=== PATIENT | female | born 1945 | race Caucasian/White ===

== ENCOUNTER 2017-03-11 17:04 | Emergency (ER) | payer MEDICARE, OTHER ==
[~2017-03-11] VITALS: Ht 160 cm; Wt 61.2 kg
[~2017-03-11 17:04] MED LIST: ALBU8.5H2 INH; CALC-20 PO; ESCI20TA PO; METO-295 PO; NAPR220C15 PO; NIAC500T8 PO; PRAV10TA40 PO; TIOT18CA3 INH; UBID100C13 PO
[2017-03-11 17:49] LABS: BASOPHILS # (AUTO) 0.1 /CMM (0.0-0.2); BASOPHILS % (AUTO) 0.8 % (0.0-2.0); EOSINOPHILS # (AUTO) 0.1 /CMM (0.0-0.7); EOSINOPHILS % (AUTO) 0.8 % (0.0-6.0); HEMATOCRIT 45 % (33-45); HEMOGLOBIN 14.6 g/dL (11.5-14.8); LYMPHOCYTES # (AUTO) 1.7 /CMM (0.8-4.8); LYMPHOCYTES % (AUTO) 20.4 % (20.0-44.0); MEAN CORPUSCULAR HEMOGLOBIN 30 PG (26.0-33.0); MEAN CORPUSCULAR HGB CONC 32 g/dl (31.0-36.0); MEAN CORPUSCULAR VOLUME 93 fL (82-100); MONOCYTES # (AUTO) 0.5 /CMM (0.1-1.30); MONOCYTES % (AUTO) 5.9 % (2.0-12.0); NEUTROPHILS % (AUTO) 72.1 % (43.0-81.0); PLATELET COUNT (AUTO) 232 /CMM (150-450); RDW COEFFICIENT OF VARIATION 13.1 (11.5-15.0); RED BLOOD CELL COUNT(AUTO) 4.87 MIL/uL (4.0-5.2); WHITE BLOOD COUNT (AUTO) 8.4 K/uL (4.3-11.0)
[2017-03-11 18:06] LABS: INR 0.97 (0.87-1.13); PROTHROMBIN TIME 10.1 SECS (9.5-12.7)
[2017-03-11 18:37] VITALS: BP 135/85
== END 2017-03-11 18:38 | disposition home or self-care (01) ==
LOC: ER 17:08
DX: S40.021A Contusion of right upper arm, initial encounter (principal); S50.11XA Contusion of right forearm, initial encounter; S60.221A Contusion of right hand, initial encounter; G35 Multiple sclerosis; J44.9 Chronic obstructive pulmonary disease, unspecified; Z90.710 Acquired absence of both cervix and uterus; Z88.5 Allergy status to narcotic agent; Z88.6 Allergy status to analgesic agent; Z88.8 Allergy status to other drugs, medicaments and biological substances; X58.XXXA Exposure to other specified factors, initial encounter; Y93.89 Activity, other specified; Y92.89 Other specified places as the place of occurrence of the external cause; Y99.9 Unspecified external cause status
CPT/HCPCS: 36415; 85025; 85730; 99284; A4606; Z7610

== ENCOUNTER 2017-05-24 08:58 | Inpatient (IN) | payer MEDICARE, OTHER ==
[~2017-05-24] VITALS: Ht 162.6 cm; Wt 69.4 kg
--- NOTE | 2017-05-24 09:05 | NUR ---
Chantal from home: nausea, vomiting since early am. Unable to recall how many times she vomitted within the day. Pt in no apparent distress. Respiration even and unlabored. vss. afebrile
[2017-05-24] MEDS ORDERED: ONDANSETRON HCL/PF 4 MG/2 ML VIAL ONE (09:19)
[2017-05-24 09:27] LABS: BASOPHILS % (AUTO) 0.2 % (0.0-2.0); EOSINOPHILS # (AUTO) 0.1 /CMM (0.0-0.7); EOSINOPHILS % (AUTO) 0.5 % (0.0-6.0); HEMATOCRIT 42 % (33-45); HEMOGLOBIN 14.1 g/dL (11.5-14.8); LYMPHOCYTES # (AUTO) 0.6 /CMM (0.8-4.8); LYMPHOCYTES % (AUTO) 2.8 % (20.0-44.0); MEAN CORPUSCULAR HEMOGLOBIN 31 PG (26.0-33.0); MEAN CORPUSCULAR HGB CONC 34 g/dl (31.0-36.0); MEAN CORPUSCULAR VOLUME 90 fL (82-100); MONOCYTES # (AUTO) 0.5 /CMM (0.1-1.30); MONOCYTES % (AUTO) 2.1 % (2.0-12.0); NEUTROPHILS % (AUTO) 94.4 % (43.0-81.0); PLATELET COUNT (AUTO) 245 /CMM (150-450); RDW COEFFICIENT OF VARIATION 13.7 (11.5-15.0); RED BLOOD CELL COUNT(AUTO) 4.63 MIL/uL (4.0-5.2); WHITE BLOOD COUNT (AUTO) 22.2 K/uL (4.3-11.0)
[2017-05-24] MEDS ORDERED: ONDANSETRON HCL/PF 4 MG/2 ML VIAL IVP ONE (09:30)
[2017-05-24] MEDS ORDERED: IV NS 0.9% 1,000 ML BAG IV ONE (09:30)
--- NOTE | 2017-05-24 09:31 | NUR ---
EKG IN PROGRESS
[2017-05-24 09:37] LABS: CALCIUM, SERUM 9.3 mg/dL (8.5-10.1); CARBON DIOXIDE 29 mmol/L (21-32); CHLORIDE 105 mmol/L (98-107); CREATININE 1.2 mg/dL (0.6-1.3); GLUCOSE 127 mg/dL (74-106); POTASSIUM 4.2 mmol/L (3.5-5.1); SODIUM SERUM 141 mmol/L (136-145); UREA NITROGEN, BLOOD 20 mg/dL (7-18)
[2017-05-24 09:42] LABS: ALANINE AMINOTRANSFERASE 21 U/L (12-78); ALBUMIN 3.6 g/dL (3.4-5.0); ALKALINE PHOSPHATASE 67 U/L (46-116); ASPARTATE AMINOTRANSFERASE 22 U/L (15-37); BILIRUBIN,DIRECT 0.1 mg/dL (0.0-0.2); BILIRUBIN,TOTAL 0.4 mg/dL (0.2-1.0); LIPASE 118 U/L (73-393); TOTAL PROTEIN, SERUM 6.9 g/dL (6.4-8.2)
[2017-05-24 09:48] LABS: TROPONIN I < 0.017 ng/mL (0.00-0.056)
[2017-05-24 10:16] LABS: BILIRUBIN,URINE Negative (NEGATIVE); BLOOD, URINE Large Ery/uL (NEGATIVE); COLOR,URINE Yellow (YELLOW); KETONES,URINE Negative (NEGATIVE); LEUKOCYTE ESTERASE ,URINE Large (NEGATIVE); NITRITE, URINE Positive (NEGATIVE); PROTEIN,URINE 30 mg/dl (NEGATIVE); UGLUCOSE Negative (NEGATIVE); UROBILINOGEN,URINE 0.2 EU/dL (0.2)
[2017-05-24 10:18] LABS: APPEARANCE,URINE CLOUDY (CLEAR)
[2017-05-24 10:19] LABS: BACTERIA,URINE 2+ /HPF (None Seen); RBC,URINE 21-50 /HPF (0-2); SQUAMOUS EPITHELIAL CELL,UR Moderate /HPF (None Seen); WBC,URINE 21-50 /HPF (0-3)
[2017-05-24 10:20] LABS: URINE AMORPHOUS PHOSPHATES Few /HPF (None Seen)
[2017-05-24] MEDS ORDERED: VENL37.591 PO (10:50)
[2017-05-24] MEDS ORDERED: DIME1CAP PO (10:50)
[2017-05-24] MEDS ORDERED: METO5TAB2 PO (10:50)
[2017-05-24] MEDS ORDERED: CEFTRIAXONE 1GM BAG (ER ONLY) 1 GM/50 ML PIGGYBACK IV ONE (11:00)
[2017-05-24] MEDS ORDERED: CEFTRIAXONE 1GM BAG (ER ONLY) 50 ML IV ONE (11:07)
[2017-05-24 11:34] LABS: BAND % (MANUAL) 4 % (0.0-5.0); EOSINOPHILS % (MANUAL) 1 % (0-4); LYMPHOCYTES % (MANUAL) 5 % (16-48); MONOCYTES % (MANUAL) 1 % (0-11.0); NEUTROPHILS % (MANUAL) 89 (42-76)
--- NOTE | 2017-05-24 11:35 | NUR ---
COREY PAGED, DR.SAM Martinez COMPUTATOR
--- NOTE | 2017-05-24 12:05 | NUR ---
REPORT GIVEN TO LEONELA CLANCY FOR CONTINUITY OF CARE
--- NOTE | 2017-05-24 12:13 | NUR ---
PATIENT TRANSPORTED TO [facility]. S
[2017-05-24 12:25] VITALS: BP 159/90
--- NOTE | 2017-05-24 12:30 | NUR ---
PULP BEATERPATIENT CARE NOTE PATIENT IS ALERT AND ORIENTED x3. NO PAIN AT THIS TIME. NO SOB OR DISTRESS NOTED. CALL LIGHT WITHIN REACH. SAFETY MEASURES IMPLEMENTED. ABLE TO COMMUNICATE NEEDS. PRESENTED TO THE ER FOR NAUSEAS AND VOMITING, MEDICATION GIVEN IN ER. PATIENT STATES NO NAUSEA AT THIS TIME. INCONTINENT. DIAGNOSIS FOR UTI. CARDIAC DIET, STRICT INTAKE AND OUTPUT. RIGHT AC INTACT AND PATENT. NO SKIN ISSUES NOTED AT THIS TIME. PENDING BLOOD AND URINE CULTURES. ROOM AIR O2 SATURATION AT 98%, TOLERATING WELL. LIVES AT HOME WITH CAREGIVER. HISTORY OF MS, COPD, HYSTERECTOMY, GALLBLADDER REMOVAL, BREAST BIOPSY, LEFT AND RIGHT ARM FRACTURE, STRABISMUS, GERD, UTI HISTORY, DEPRESSION AND ANXIETY. ALLERGIES TO ACETAMINOPHEN, IBUPROFEN AND CODEINE. FULL CODE NO ISOLATION. MED RECONCILIATION TO BE DONE, MD AWARE. AWAITING FOR ORDERS. WILL CONTINUE TO MONITOR
--- NOTE | 2017-05-24 13:00 | NUR ---
RN NOTE PATIENT IS NOW MEDSURG NOT TELE
[2017-05-24] MEDS ORDERED: HYDROCODONE/APAP 5/325MG 1 EACH TABLET PO PRN ×2 (14:30)
[2017-05-24] MEDS ORDERED: IPRATROPIUM NEB FS 0.5 MG/2.5 ML AMPUL.NEB NEB SCH (14:30)
[2017-05-24] MEDS ORDERED: MAGNESIUM HYDROXIDE 30 ML UDC PO PRN (14:30)
[2017-05-24] MEDS ORDERED: MAG HYDROX/AL HYDROX/SIMETH 30 ML UDC PO PRN (14:30)
[2017-05-24] MEDS ORDERED: ACETAMINOPHEN 325 MG TABLET PO PRN (14:30)
[2017-05-24] MEDS ORDERED: ZOLPIDEM TARTRATE 5 MG TABLET PO PRN (14:30)
[2017-05-24] MEDS ORDERED: ONDANSETRON HCL/PF 4 MG/2 ML VIAL IVP PRN (14:30)
[2017-05-24] MEDS ORDERED: Z GUARD REMEDY 2 OZ OINT TP PRN (14:30)
[2017-05-24] MEDS: ENOXAPARIN SODIUM 40 MG/0.4 ML DISP.SYRIN SQ SCH (15:28)
[2017-05-24] MEDS: IV NS 0.9% 1,000 ML IV PRN (15:59)
[2017-05-24 16:00] VITALS: BP 137/75
--- NOTE | 2017-05-24 18:46 | NUR ---
MS RN CLOSING NOTE PATIENT IS ALERT AND ORIENTED X3. NO PAIN AT THIS TIME. NO SOB OR DISTRESS NOTED. CALL LIGHT WITHIN REACH AT ALL TIMES. SAFETY MEASURES IMPLEMENTED. ABLE TO COMMUNICATE NEEDS. BEDREST. IV ON LEFT AC INTACT AND PATENT, IV FLUIDS RUNNING AT THIS TIME AND TOLERATING WELL. ALL DUE MEDICATIONS GIVEN ORDERED. ALL NURSING CARE NEEDS ATTENDED TO. BLOOD AND URINE CULTURES PENDING. CARDIAC DIET. WILL ENDORSE TO FORENSIC BALLISTICS EXPERT NURSE FOR IZABELA
[2017-05-24] MEDS ORDERED: ALBUTEROL FS 2.5 MG/3 ML VIAL.NEB NEB PRN (19:30)
--- NOTE | 2017-05-24 19:45 | NUR ---
MS RN OPENING NOTES RECEIVED PATIENT RESTING IN BED, IN SEMI BELL POSITION. A & O X 3, NO C/O PAIN, NO SOB, NO ACUTE DISTRESS NOTED AT THIS TIME. NO N/V NOTED. COMFORTABLE. INCONTINENT OF B & BM. KEEPING CLEAN & DRY. IV ACCESS TO LAC, INTACT PATENT, RUNNING WITH NS @ 75 ML/HR. BED IN LOW LOCKED POSITION. CALL LIGHT WITHIN REACH. WILL ASSIST WITH ADL CARE.
[2017-05-24 20:00] VITALS: BP_SYST 139; BP_SYST 150; BP_DIAS 88
[2017-05-25] MEDS: IV NS 0.9% 1,000 ML IV PRN (04:47)
--- NOTE | 2017-05-25 06:30 | NUR ---
MS RN NOTES PATIENT SLEPT INTERMITTENTLY AT NIGHT, IN SEMI BELL POSITION. A & O X 3, NO C/O PAIN, NO SOB/DISTRESS NOTED AT THIS TIME. NO N/V NOTED. COMFORTABLE. INCONTINENT OF B & BM. KEEPING CLEAN & DRY. TURNED & REPOSITIONED INDICATED. IV ACCESS TO LAC, INTACT PATENT, RUNNING WITH NS @ 75 ML/HR. BED IN LOW LOCKED POSITION. CALL LIGHT WITHIN REACH. WILL ENDORSE TO AM RN FOR CONTINUITY OF CARE.
[2017-05-25 07:29] LABS: BASOPHILS % (AUTO) 0.2 % (0.0-2.0); EOSINOPHILS # (AUTO) 0.1 /CMM (0.0-0.7); EOSINOPHILS % (AUTO) 0.7 % (0.0-6.0); HEMATOCRIT 38 % (33-45); HEMOGLOBIN 12.5 g/dL (11.5-14.8); LYMPHOCYTES # (AUTO) 1.7 /CMM (0.8-4.8); LYMPHOCYTES % (AUTO) 11.1 % (20.0-44.0); MEAN CORPUSCULAR HEMOGLOBIN 31 PG (26.0-33.0); MEAN CORPUSCULAR HGB CONC 33 g/dl (31.0-36.0); MEAN CORPUSCULAR VOLUME 93 fL (82-100); MONOCYTES # (AUTO) 0.8 /CMM (0.1-1.30); MONOCYTES % (AUTO) 5.3 % (2.0-12.0); NEUTROPHILS # (AUTO) 12.8 /CMM (1.8-8.9); NEUTROPHILS % (AUTO) 82.7 % (43.0-81.0); PLATELET COUNT (AUTO) 189 /CMM (150-450); RDW COEFFICIENT OF VARIATION 14.3 (11.5-15.0); RED BLOOD CELL COUNT(AUTO) 4.07 MIL/uL (4.0-5.2); WHITE BLOOD COUNT (AUTO) 15.5 K/uL (4.3-11.0)
[2017-05-25 07:43] LABS: CALCIUM, SERUM 8.7 mg/dL (8.5-10.1); CREATININE 0.8 mg/dL (0.6-1.3); MAGNESIUM 1.9 mg/dL (1.8-2.4); PHOSPHORUS 2.3 mg/dL (2.5-4.9); POTASSIUM 3.4 mmol/L (3.5-5.1)
[2017-05-25 07:51] LABS: THYROID STIMULATING HORMONE 0.372 uIU/mL (0.358-3.74)
[2017-05-25 08:00] VITALS: BP 156/86
--- NOTE | 2017-05-25 08:00 | NUR ---
MS RN OPENING NOTES RECEIVED PT A&OX3, RESTING SEMI FOWLERS IN BED WITH NO OBVIOUS SIGNS OF DISTRESS. PT TOELRATING ROOM AIR WITH NO SOB, LUNGS AUSCULTATED CLEAR THROUGHOUT. PT REPORTS NO PAIN. IV LEFT AC IS PATENT AND OPERATIONAL. PT BRIEFED ON TODAY'S POC. PT REPORTS NEEDING TO OPEN BOWEL, NO OTHER CONCERNS OR COMPLAINTS AT THIS TIME.
[2017-05-25] MEDS: ENOXAPARIN SODIUM 40 MG/0.4 ML DISP.SYRIN SQ SCH (09:27)
[2017-05-25] MEDS: VENLAFAXINE XR 37.5 MG CAP.SR.24H PO SCH (09:28)
[2017-05-25] MEDS: ATORVASTATIN 10 MG TABLET PO SCH (09:28)
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
[2017-05-25] MEDS: CEFTRIAXONE 1 G in IV D5W 50 ML IV SCH (11:53)
[2017-05-25] MEDS ORDERED: K PHOS NEUTRAL 250 MG TABLET PO ONE (12:30)
[2017-05-25] MEDS: POTASSIUM CL. PREMIX PERIPHER. 50 ML IV SCH ×2 (13:50→15:53)
--- NOTE | 2017-05-25 15:30 | NUR ---
MS RN NOTES PATIENT NOTED WITH BLOOD PRESSURE OF 160/90 DR. PUENTES MADE AWARE ORDERS TO STOP FLUIDS. AND CONTINUE MONITORING.
--- NOTE | 2017-05-25 19:38 | NUR ---
MS RN CLOSING NOTES PT A&0X3, LOW SEMI FOWLERS WITH FRIEND AT BEDSIDE. PT TOLERATING ROOM AIR WITH NO SOB. BED IN LOWEST LOCKED POSITION WITH HANDRAILSX2 AND CALL SHERMAN WITHIN REACH. PT WITH IV G#22 IN RIGHT HAND IS PATENT AND SALINE LOCKED. PT PROVIDED WITH FREQUENT REASSURANCE AND SUPPORT THROUGHOUT SHIFT TO GOOD EFFECT. ALL AM SHIFT DUTIES ATTENDED TO. PT WITHOUT CONCERNS OR COMPLAINTS AT THIS TIME. WILL ENDORSE TO PM NURSE.
[2017-05-25 20:00] VITALS: BP 150/77
--- NOTE | 2017-05-25 20:30 | NUR ---
RN NOTES PATIENT REQUESTED AMBIEN, EXPLAINED TO PATIENT THAT AMBIEN IS TOO EARLY TO TAKE, PATIENT INSISTED BECAUSE SHE IS UNABLE TO SLEEP SINCE LAST NIGHT.
--- NOTE | 2017-05-25 21:00 | NUR ---
RN OPENING NOTES RECEIVED REPORT FROM LEONELA BARKER FOR Pt's IZABELA. SAFETY MEASURES IN PLACE. BED LOW, LOCKED, HOB ELEVATED, SIDE RAILS UP, CALL LIGHT AND BEDSIDE TABLE WITHIN REACH. WILL CONTINUE TO MONITOR Pt THROUGHOUT THE NIGHT FOR SAFETY.
--- NOTE | 2017-05-26 06:45 | NUR ---
RN CLOSING NOTES NO SIGNIFICANT CHANGES IN Pt's CONDITION. Pt REMAINS STABLE AT THIS TIME. NO S/S OF ACUTE DISTRESS OR SOB NOTED. SAFETY MEASURES IN PLACE. ALL NEEDS MET AND ATTENDED TO. WILL ENDORSE TO DAYSHIFT RN FOR Pt's IZABELA.
[2017-05-26 07:41] LABS: CALCIUM, SERUM 8.9 mg/dL (8.5-10.1); CREATININE 0.8 mg/dL (0.6-1.3); PHOSPHORUS 2.4 mg/dL (2.5-4.9); POTASSIUM 3.1 mmol/L (3.5-5.1)
[2017-05-26 08:00] VITALS: BP 154/95
--- NOTE | 2017-05-26 08:00 | NUR ---
MS RN OPENING NOTES PT RESTING SUPINE SEMI FOWLERS AND A&0X3. PT TOLERATING ROOM AIR WITH NO SOB. LUNGS AUSCULTATED PREDOMINANTLY CLEAR WITH SOME FINE CRACKLES THROUGHOUT, PT ADJUSTED TO POSITION OF COMFORT AND ENCOURAGED TO COUGH AND DEEP BREATHE. . IVC G#22 IN RIGHT HAND FLUSHED PATENT AND SALINE LOCKED. BOWEL SOUNDS ACTIVE BUT REPORTING DIFFICULTY TO PASS STOOL AND MINOR TRANSIENT PAIN TO LRQ OF ABDOMEN, NO OTHER CONCERNS OR COMPLAINTS AT THIS TIME. PT BRIEFED ON PLAN OF CARE. BED IN LOWEST LOCKED POSITION WITH HANDRAILSX3 AND CALL SHERMAN WITHIN REACH.
[2017-05-26] MEDS: ATORVASTATIN 10 MG TABLET PO SCH (08:29)
[2017-05-26] MEDS: ENOXAPARIN SODIUM 40 MG/0.4 ML DISP.SYRIN SQ SCH (08:29)
[2017-05-26] MEDS: VENLAFAXINE XR 37.5 MG CAP.SR.24H PO SCH (08:29)
[2017-05-26 08:57] LABS: BASOPHILS % (AUTO) 0.3 % (0.0-2.0); EOSINOPHILS # (AUTO) 0.1 /CMM (0.0-0.7); EOSINOPHILS % (AUTO) 0.7 % (0.0-6.0); HEMATOCRIT 41 % (33-45); HEMOGLOBIN 13.4 g/dL (11.5-14.8); LYMPHOCYTES # (AUTO) 2.2 /CMM (0.8-4.8); LYMPHOCYTES % (AUTO) 22.7 % (20.0-44.0); MEAN CORPUSCULAR HEMOGLOBIN 30 PG (26.0-33.0); MEAN CORPUSCULAR HGB CONC 33 g/dl (31.0-36.0); MEAN CORPUSCULAR VOLUME 91 fL (82-100); MONOCYTES # (AUTO) 0.8 /CMM (0.1-1.30); MONOCYTES % (AUTO) 8.3 % (2.0-12.0); NEUTROPHILS # (AUTO) 6.6 /CMM (1.8-8.9); PLATELET COUNT (AUTO) 199 /CMM (150-450); RDW COEFFICIENT OF VARIATION 14.1 (11.5-15.0); RED BLOOD CELL COUNT(AUTO) 4.43 MIL/uL (4.0-5.2); WHITE BLOOD COUNT (AUTO) 9.8 K/uL (4.3-11.0)
--- NOTE | 2017-05-26 11:00 | NUR ---
MS RN NOTES PATIENT SEEN AND EVALUATED BY DR. BURDICK ORDERS NOTED AND CARRIED OUT.
[2017-05-26] MEDS: CEFTRIAXONE 1 G in IV D5W 50 ML IV SCH (11:14)
[2017-05-26] MEDS ORDERED: K PHOS NEUTRAL 250 MG TABLET PO ONE (11:30)
[2017-05-26] MEDS: POTASSIUM CHLORIDE 20 MEQ TAB.PRT.SR PO SCH ×2 (12:41→14:00)
[2017-05-26] MEDS ORDERED: CEPH-570 PO (15:14)
[2017-05-26 16:00] VITALS: BP 136/89
--- NOTE | 2017-05-26 19:11 | NUR ---
MS RN NOTES PATIENT IN BED RESTING. NO SOB OR ACUTE DISTRESS NOTED. PATIENT WAITING FOR CAREGIVER TO COME AND PICK HER UP FOR DISCHARGE. PATIENT IN STABLE CONDITION. DISCHARGE INSTRUCTIONS PROVIDED. ALL DUE MEDICATIONS ADMINISTERED. CALLED IN PRESCRIPTION TO PATIENTS PHARMACY. WILL ENDORSE TO PM SHIFT IZABELA. BELONGINGS ACCOUNTED FOR, BELONGING LIST SIGNED. WILL ENDORSE DISCHARGE TO PM SHIFT.
--- NOTE | 2017-05-26 19:20 | NUR ---
MS RN OPENING NOTES RECEIVED PATIENT RESTING IN BED, A & O X 3, NO C/O PAIN, NO SOB, NO ACUTE DISTRESS NOTED. DISCHARGING HOME TODAY, ALL DISCHARGE INSTRUCTIONS GIVEN TO THE PT BY AM SHIFT RN. WAITING FOR THE CUFF FOLDER TO HEMATOLOGY SPECIALIST. IV ACCESS TO RIGHT HAND, INTACT PATENT. BED IN LOW LOCKED POSITION. CALL LIGHT WITHIN REACH. IN STABLE CONDITION. WILL F/U WITH THE CUFF FOLDER.
--- NOTE | 2017-05-26 20:01 | NUR ---
PATIENT DISCHARGED TIRE SORTER ARRIVED TO BOX GLUER THE PATIENT, IV LINE REMOVED, PRESSURE DRESSING APPLIED. ID BAND REMOVED. TIRE SORTER ASSISTED TO CHANGE. V/S CHECKED & WNL. PATIENT NOTED TO BE EXITED TO GO HOME. ALL BELONGINGS WERE ACCOUNTED FOR. MD AWARE OF ALL ABNORMAL LABS. ESCORTED PATIENT TO THE LOBBY BY TONY IN STABLE CONDITION WITH TIRE SORTER BY SIDE.
[2017-05-26 20:19] VITALS: BP 158/84
== END 2017-05-26 20:00 | disposition home or self-care (01) | DRG 690 ==
LOC: ER 09:00 → TELE 12:11 → MED 21:30
DX: N39.0 Urinary tract infection, site not specified (principal); G35 Multiple sclerosis; J44.9 Chronic obstructive pulmonary disease, unspecified; E78.5 Hyperlipidemia, unspecified; Z90.49 Acquired absence of other specified parts of digestive tract; Z98.890 Other specified postprocedural states; Z88.6 Allergy status to analgesic agent; Z88.5 Allergy status to narcotic agent; Z79.899 Other long term (current) drug therapy; B96.20 Unspecified Escherichia coli [E. coli] as the cause of diseases classified elsewhere; Z90.710 Acquired absence of both cervix and uterus
CPT/HCPCS: 36415; 80048-TC; 80061-TC; 80076-TC; 81000-TC; 83605-TC; 83690-TC; 83735-TC; 84100-TC; 84443-TC; 84484-TC; 85025-TC; 87040-TC; 87081-TC; 87086-TC; 87186-TC; 97110-TC; 97530-TC; J0696; J1650; J2405; J3480; J7030; J7060

== ENCOUNTER 2018-01-08 21:20 | Inpatient (IN) | payer MEDICARE, OTHER ==
[~2018-01-08] VITALS: Ht 160 cm; Wt 68.6 kg
[~2018-01-08 21:20] MED LIST changes: -ALBU8.5H2 INH; +ALBU8.5H8 INH; -CALC-20 PO; +CEPH-570 PO; +DIME1CAP PO; -ESCI20TA PO; -METO-295 PO; +METO5TAB2 PO; -NAPR220C15 PO; -NIAC500T8 PO; -UBID100C13 PO; +VENL37.591 PO
--- NOTE | 2018-01-08 21:45 | NUR ---
BIBRA 878 C/O GENERALIZED WEAKNESS X 1 DAY, HX MS. AWAITING FOR MD [place]. NOTED ELEVATED BP. PT AAOX4. SAFETY AND COMFORT MEASURES PROVIDED. WILL MONITOR.
--- NOTE | 2018-01-08 22:00 | NUR ---
IV ACCESS STARTED. BLOOD DRAWN FOR LABS.
--- NOTE | 2018-01-08 22:30 | NUR ---
PT TAKEN TO CT.
[2018-01-08 22:39] LABS: BASOPHILS # (AUTO) 0.1 /CMM (0.0-0.2); BASOPHILS % (AUTO) 0.7 % (0.0-2.0); EOSINOPHILS % (AUTO) 0.4 % (0.0-6.0); HEMATOCRIT 42 % (33-45); HEMOGLOBIN 13.9 g/dL (11.5-14.8); LYMPHOCYTES % (AUTO) 5.9 % (20.0-44.0); MEAN CORPUSCULAR HEMOGLOBIN 31 PG (26.0-33.0); MEAN CORPUSCULAR HGB CONC 33 g/dl (31.0-36.0); MEAN CORPUSCULAR VOLUME 94 fL (82-100); MONOCYTES # (AUTO) 0.6 /CMM (0.1-1.30); MONOCYTES % (AUTO) 3.9 % (2.0-12.0); NEUTROPHILS # (AUTO) 14.7 /CMM (1.8-8.9); NEUTROPHILS % (AUTO) 89.1 % (43.0-81.0); PLATELET COUNT (AUTO) 207 /CMM (150-450); RED BLOOD CELL COUNT(AUTO) 4.45 MIL/uL (4.0-5.2); WHITE BLOOD COUNT (AUTO) 16.5 K/uL (4.3-11.0)
--- NOTE | 2018-01-08 22:40 | NUR ---
CALLED PT CANDY (RELATIVE) [phone], VM LEFT WAITING FOR CALL BACK.
[2018-01-08] MEDS ORDERED: hydrALAZINE HCL IV 20 MG VIAL ONE (22:43)
[2018-01-08 22:45] LABS: CALCIUM, SERUM 9.2 mg/dL (8.5-10.1); CARBON DIOXIDE 26 mmol/L (21-32); CHLORIDE 105 mmol/L (98-107); GLUCOSE 114 mg/dL (74-106); POTASSIUM 3.8 mmol/L (3.5-5.1); SODIUM SERUM 137 mmol/L (136-145); UREA NITROGEN, BLOOD 15 mg/dL (7-18)
[2018-01-08 22:51] LABS: ALANINE AMINOTRANSFERASE 20 U/L (12-78); ALBUMIN 3.4 g/dL (3.4-5.0); ALKALINE PHOSPHATASE 84 U/L (46-116); ASPARTATE AMINOTRANSFERASE 15 U/L (15-37); BILIRUBIN,DIRECT 0.1 mg/dL (0.0-0.2); BILIRUBIN,TOTAL 0.5 mg/dL (0.2-1.0); TOTAL PROTEIN, SERUM 7.3 g/dL (6.4-8.2)
[2018-01-08 22:54] LABS: TROPONIN I < 0.017 ng/mL (0.00-0.056)
[2018-01-08] MEDS ORDERED: hydrALAZINE HCL IV 20 MG VIAL IV ONE (23:00)
[2018-01-08 23:05] LABS: BAND % (MANUAL) 5 % (0.0-5.0); LYMPHOCYTES % (MANUAL) 7 % (16-48); MONOCYTES % (MANUAL) 3 % (0-11.0); NEUTROPHILS % (MANUAL) 85 (42-76)
--- NOTE | 2018-01-08 23:22 | NUR ---
URINE SAMPLE OBTAINED, VIA IN AND OUT CATH. SENT.
[2018-01-08] MEDS ORDERED: ALBUTEROL FS 2.5 MG/0.5 ML VIAL.NEB NEB ONE (23:30)
--- NOTE | 2018-01-08 23:31 | NUR ---
CALLED RT FOR BREATHING TX.
[2018-01-08] MEDS ORDERED: ALBUTEROL FS 2.5 MG/0.5 ML VIAL.NEB ONE (23:38)
--- NOTE | 2018-01-08 23:40 | NUR ---
PT NOTED DESATED TO 91%. MD MADE AWARE.
--- NOTE | 2018-01-08 23:50 | NUR ---
PT SATING AT 91-93% ON RA.
--- NOTE | 2018-01-08 23:51 | NUR ---
SPOKE TO SCARLET [phone], PT FRIEND. ABLE TO CAT SCAN TECH PT ONCE CLEARED FOR DC
--- NOTE | 2018-01-08 23:54 | NUR ---
PT TAKEN FOR CTA.
[2018-01-09] VITALS (7 sets, daily range): BP systolic 111–148; BP diastolic 53–83
[2018-01-09 00:10] LABS: APPEARANCE,URINE SL CLOUDY (CLEAR); BILIRUBIN,URINE NEGATIVE (NEGATIVE); BLOOD, URINE NEGATIVE Ery/uL (NEGATIVE); COLOR,URINE YELLOW (YELLOW); PROTEIN,URINE TRACE mg/dl (NEGATIVE); UGLUCOSE NEGATIVE (NEGATIVE)
[2018-01-09 00:11] LABS: KETONES,URINE 1+ (NEGATIVE); LEUKOCYTE ESTERASE ,URINE NEGATIVE (NEGATIVE); NITRITE, URINE POSITIVE (NEGATIVE); UROBILINOGEN,URINE 0.2 EU/dL (0.2)
[2018-01-09 00:23] LABS: BACTERIA,URINE Moderate /HPF (None Seen); RBC,URINE NONE SEEN /HPF (0-2); SQUAMOUS EPITHELIAL CELL,UR Moderate /HPF (None Seen)
--- NOTE | 2018-01-09 00:25 | NUR ---
CAREGIVER AT BEDSIDE.
--- NOTE | 2018-01-09 00:25 | NUR ---
PT RETURNED FROM CT.
[2018-01-09] MEDS ORDERED: CT SWABBABLE VALVE TRANS SET 1 EA INFUS.SET MC ONE (00:28)
[2018-01-09] MEDS ORDERED: IV NS 0.9% 500 ML IV ONE (00:28)
[2018-01-09] MEDS ORDERED: IOHEXOL-350 100 ML VIAL IV ONE (00:28)
[2018-01-09] MEDS ORDERED: ONDANSETRON HCL/PF 4 MG/2 ML VIAL ONE (00:29)
[2018-01-09] MEDS ORDERED: ONDANSETRON HCL/PF 4 MG/2 ML VIAL IV ONE (00:30)
--- NOTE | 2018-01-09 00:34 | NUR ---
CONTACT NUMBER BUD, FAMILY MEMBER- .
--- NOTE | 2018-01-09 01:05 | NUR ---
PT NOTED AT 02 SAT 93% ON ROOM AIR. PT DENIES SOB AT THIS TIME. PT PLACED ON 2L NC PER MD, 02 SAT AT 96%.
--- NOTE | 2018-01-09 01:25 | NUR ---
REPORT GIVEN TO SUZI GIPSON FOR TELE ROOM 314-1.
--- NOTE | 2018-01-09 01:33 | NUR ---
CALLED [facility] FOR PENDING CTA. PER PIPPA, TO BE READ NEXT.
--- NOTE | 2018-01-09 02:02 | NUR ---
CALLED [facility] SPOKE TO PIPPA FOR PENDING CTA. CURRENTLY BEING READ AT THIS TIME.
--- NOTE | 2018-01-09 02:12 | NUR ---
CALLED [facility] FOR PANEL ADMISSION. WAITING FOR CALL BACK,.
[2018-01-09] MEDS ORDERED: AZITHROMYCIN 500 MG in IV D5W 250 ML IV STA (02:14)
--- NOTE | 2018-01-09 02:15 | NUR ---
CALLED LAB FOR BLOD LOLA.
[2018-01-09] MEDS ORDERED: CEFTRIAXONE 1GM BAG (ER ONLY) 50 ML IV ONE (02:17)
[2018-01-09] MEDS ORDERED: VANCOMYCIN 1 GM VIAL ONE (02:17)
[2018-01-09] MEDS ORDERED: AZITHROMYCIN 500 MG VIAL ONE (02:22)
[2018-01-09] MEDS: LEVALBUTEROL HCL NEB 1.25 MG/0.5 ML VIAL.NEB NEB PRN ×2 (02:30→02:31)
[2018-01-09] MEDS ORDERED: CEFTRIAXONE 1GM BAG (ER ONLY) 1 GM/50 ML PIGGYBACK IV ONE (02:30)
--- NOTE | 2018-01-09 02:33 | NUR ---
LAB AT BEDSIDE FOR BLOOD CULTURE DRAW.
--- NOTE | 2018-01-09 02:42 | NUR ---
ENDORSED TO LUCA VICK PT ROCEPHIN IVPB TRANSFUSING ON ADMISSION, AND IVPB ZITHROMAX ENDORSED TO RN.
--- NOTE | 2018-01-09 03:02 | NUR ---
GUITAR MAKER HAND NOTES: PATIENT CAME TO UNIT VIA [facility], WITH RN CHANTAL. ALERT, ORIENTED X 4. ON SUPPLEMENTAL O2 AT 3L VIA NC. CAN TOLERATED ON ROOM AIR, BUT SATURATING BETTER WITH O2 ON. BREATHING EVEN AND UNLABORED. NO COMPLAINTS OF PAIN AND DISCOMFORT OF THIS TIME. JUST ASKED TO CHANGE HER DIAPER. SKIN ASSESSMENT DONE; PICTURES TAKEN. IV ATB AZITHROMAX 500MG IV IN D5W 250ML WAS BROUGHT UP FROM ER; MEDICATION WASN'T SCANNED, BUT ADMINISTERED. AZITHROMAX 250MG [id number] D5W NOT ADMINISTERED AZITHROMAX 500MG IS CURRENTLY INFUSING. CLARIFIED WITH PHARMACY. ON TELE MONITOR, SINUS TACHY 102. PATIENT ORIENTED TO CALL SHERMAN. BED IN LOW, LOCKED POSITION. WILL CONTINUE TO MONITOR.
--- NOTE | 2018-01-09 03:07 | NUR ---
PT TRANSFERRED PER ACLS PROTOCOL.
--- NOTE | 2018-01-09 03:32 | NUR ---
RN NOTES: PATIENT ASKED FOR WATER. TOLERATED WELL, NO COUGHING, NO DROOLING. GAG REFLEX STRONG.
[2018-01-09] MEDS: IV NS 0.9% 1,000 ML IV SCH ×2 (03:54→22:30)
[2018-01-09] MEDS: AZITHROMYCIN 250 MG in IV D5W 250 ML IV SCH (04:17)
--- NOTE | 2018-01-09 06:34 | NUR ---
FUSION JUNCTURE GRINDER CLOSING NOTES: PATIENT ASLEEP, BUT EASILY AROUSABLE. ALERT, ORIENTED X 4. ON SUPPLEMENTAL O2 AT 3L VIA NC. CAN TOLERATED ON ROOM AIR, BUT SATURATING BETTER WITH O2 ON. BREATHING EVEN AND UNLABORED. NO COMPLAINTS OF PAIN AND DISCOMFORT OF THIS TIME. ON TELE MONITOR, SINUS RHYTHM 90. PERIPHERAL IV ON LEFT AC INFUSING AT 100ML/HR. CALL SHERMAN WITHIN REACH. BED IN LOW, LOCKED POSITION. WILL ENDORSE IZABELA TO AM SHIFT RN.
[2018-01-09] MEDS: IPRATROPIUM NEB FS 0.5 MG/2.5 ML AMPUL.NEB NEB SCH ×3 (07:04→19:48)
[2018-01-09] MEDS: ALBUTEROL FS 2.5 MG/0.5 ML VIAL.NEB NEB SCH ×3 (07:04→19:48)
--- NOTE | 2018-01-09 07:42 | NUR ---
contact agent Opening Note Received bedside SBAR report on the patient. Patient is A/Ox4, awake and responsive. Patient is in bed, bed is locked in lowest position, side rails up x3, bed alarm is on. Patient presents with Generalized weakness, and right sided weakens s/t MS. Chest is rising equally/bilaterally. Denies pain discomfort at this time. External cardiac cath technician reading is SR 92. Care plan discussed with the patient. Patient verbalized understanding of the teachings. All needs are met. Call light within reach. Educated to call for assistance using the call light. Verbalized understanding. Will continue to assess/monitor throughout the shift.
[2018-01-09] MEDS ORDERED: PNEUMOCOCCAL 23-VAL P-SAC VAC 0.5 ML VIAL IM ONE (09:00)
[2018-01-09] MEDS ORDERED: METOCLOPRAMIDE HCL 10 MG TABLET PO PRN (09:00)
[2018-01-09] MEDS ORDERED: TIOTROPIUM BROMIDE 6 CAP/BOX CAP.W.DEV IH SCH (09:00)
[2018-01-09] MEDS: VENLAFAXINE XR 37.5 MG CAP.SR.24H PO SCH (09:19)
[2018-01-09] MEDS: ENOXAPARIN SODIUM 30 MG/0.3 ML DISP.SYRIN SQ SCH (09:24)
--- NOTE | 2018-01-09 09:51 | NUR ---
Pneumonia vaccine administered as ordered. Administered in right deltoid muscle per hospital policy. Patient tolerated procedure well. Pneumonia intervention sheet completed in EMAR.
--- NOTE | 2018-01-09 19:40 | NUR ---
RN MS OPENING NOTES RECEIVED PATIENT IN BED, AWAKE ALERT AND ORIENTED X4, ABLE TO MAKE NEEDS KNOWN, RESPIRATIONS EVEN AND UNLABORED, WITH EQUAL RISE AND FALL OF CHEST, DENIES ANY PAIN OR DISCOMFORT AT THIS TIME. IV SITE TO LEFT AC INTACT AND PATENT NO REDNESS , NO INFILTRATION PRESENT. FLUIDS OFFERED TOLERATED, ORIENTED TO STAFF AND CALL LIGHT, CALL LIGHT KEPT WITHIN REACH, ALL NEEDS ATTENDED AT THIS TIME,WILL CONTINUE TO MONITOR.
--- NOTE | 2018-01-09 20:22 | NUR ---
MS RN CLOSING NOTE Patient is A/Ox4, awake and responsive. Patient is in bed, bed is locked in lowest position, side rails up x3, bed alarm is on. No acute changes throughout the day. Chest is rising equally/bilaterally. Denies pain discomfort at this time. All needs are met. Call light within reach. Educated to call for assistance using the call light. Verbalized understanding. Endorsed to the industrial engineer nurse for IZABELA
[2018-01-09] MEDS ORDERED: CEFTRIAXONE 1 G VIAL IM SCH (21:00)
[2018-01-09] MEDS: CEFTRIAXONE 1 G in IV D5W 50 ML IV SCH (21:42)
--- NOTE | 2018-01-09 22:00 | NUR ---
RN MS NOTED PATIENT HAD FAMILY MEMBER BRING HOME MEDS. FABIO VILLALBA. MADE PATIENT AWARE OF MEDS TO BE GIVEN TO PHARMACY TO BE VERIFIED. PLACED IN PHARMACY BAG IN NURSING CHARGE STATION, SECURED. RECEIPT PLACED IN CHART WITH PT SIGNATURE AND AWARE OF PROTOCOL
[2018-01-09] MEDS: ATORVASTATIN 10 MG TABLET PO SCH (22:22)
[2018-01-10] MEDS ORDERED: ASPIRIN 325 MG TABLET PO PRN (02:00)
--- NOTE | 2018-01-10 02:00 | NUR ---
RN MS NOTES PATIENT COMPLAINT OF HEADACHE, 01/24 PER PT REQUESTING FOR ASPIRIN 325, MADE AWARE AWAITING ORDER.
--- NOTE | 2018-01-10 02:12 | NUR ---
RN MS NOTES ASPIRIN 325 I TAB ORDERED GIVEN FOR PAIN , PATIENT STATES PAINHAS SUBSIDE FROM - 11/24 TOOK ASPIRIN ORDERED.
[2018-01-10] MEDS: ALBUTEROL FS 2.5 MG/0.5 ML VIAL.NEB NEB SCH ×5 (02:29→21:45)
[2018-01-10] MEDS: IPRATROPIUM NEB FS 0.5 MG/2.5 ML AMPUL.NEB NEB SCH ×5 (02:29→21:44)
[2018-01-10] MEDS: AZITHROMYCIN 250 MG in IV D5W 250 ML IV SCH (04:35)
--- NOTE | 2018-01-10 06:38 | NUR ---
RN MS CLOSING NOTES R PATIENT IN BED, AWAKE ALERT AND ORIENTED X4, ABLE TO MAKE NEEDS KNOWN, RESPIRATIONS EVEN AND UNLABORED, WITH EQUAL RISE AND FALL OF CHEST, DENIES ANY PAIN OR DISCOMFORT AT THIS TIME. IV SITE TO LEFT AC INTACT AND PATENT NO REDNESS , NO INFILTRATION PRESENT.IVF RUNNING ORDERED, FLUIDS OFFERED TOLERATED, CALL LIGHT KEPT WITHIN REACH, ALL NEEDS ATTENDED AT THIS TIME,WILL CONTINUE TO MONITOR AND ENDORSE TO NEXT SHIFT. BUTTOCKS AREA ASSESSED NOTED SKIN INTACT. DENIES ANY PAIN OR DISCOMFORT TO SITE.
[2018-01-10 07:08] LABS: BASOPHILS % (AUTO) 0.5 % (0.0-2.0); EOSINOPHILS % (AUTO) 2.5 % (0.0-6.0); HEMATOCRIT 38 % (33-45); HEMOGLOBIN 12.4 g/dL (11.5-14.8); LYMPHOCYTES # (AUTO) 2.2 /CMM (0.8-4.8); LYMPHOCYTES % (AUTO) 27.3 % (20.0-44.0); MEAN CORPUSCULAR HEMOGLOBIN 31 PG (26.0-33.0); MEAN CORPUSCULAR HGB CONC 33 g/dl (31.0-36.0); MEAN CORPUSCULAR VOLUME 95 fL (82-100); MONOCYTES # (AUTO) 0.7 /CMM (0.1-1.30); MONOCYTES % (AUTO) 8.6 % (2.0-12.0); NEUTROPHILS # (AUTO) 4.9 /CMM (1.8-8.9); NEUTROPHILS % (AUTO) 61.1 % (43.0-81.0); PLATELET COUNT (AUTO) 199 /CMM (150-450); RDW COEFFICIENT OF VARIATION 14.1 (11.5-15.0); RED BLOOD CELL COUNT(AUTO) 3.97 MIL/uL (4.0-5.2); THYROID STIMULATING HORMONE 3.545 uIU/mL (0.358-3.74)
[2018-01-10 07:20] LABS: CALCIUM, SERUM 8.5 mg/dL (8.5-10.1); CREATININE 0.9 mg/dL (0.6-1.3); PHOSPHORUS 2.1 mg/dL (2.5-4.9); POTASSIUM 3.1 mmol/L (3.5-5.1)
[2018-01-10] MEDS ORDERED: TIOT18CA3 INH (07:27)
[2018-01-10] MEDS ORDERED: ALBU18HF2 IH (07:27)
[2018-01-10] MEDS ORDERED: AUBAGIO PO (07:27)
[2018-01-10 08:00] VITALS: BP 162/86
[2018-01-10] MEDS: ENOXAPARIN SODIUM 30 MG/0.3 ML DISP.SYRIN SQ SCH (09:00)
[2018-01-10] MEDS: VENLAFAXINE XR 37.5 MG CAP.SR.24H PO SCH (09:04)
--- NOTE | 2018-01-10 10:00 | NUR ---
refused breathing tx in am,refusing lovenox.
[2018-01-10] MEDS: POTASSIUM CHLORIDE 20 MEQ TAB.PRT.SR PO SCH ×2 (10:31→12:38)
[2018-01-10] MEDS ORDERED: K PHOS NEUTRAL 250 MG TABLET PO ONE (14:00)
[2018-01-10 16:00] VITALS: BP 152/98
[2018-01-10] MEDS: SPIRIVA INHALER INH SCH (16:12)
[2018-01-10] MEDS ORDERED: DIMETHYL FUMARATE PO SCH (17:00)
[2018-01-10] MEDS: LACTOBACILLUS RHAMNOSUS GG 1 EACH CAP.SPRINK PO SCH (17:39)
--- NOTE | 2018-01-10 18:00 | NUR ---
given potassium and neutra phos replacements,refusing iv fluids all day.up with physical tx.
--- NOTE | 2018-01-10 19:00 | NUR ---
MS RN OPENING NOTE RECEIVE PATIENT AWAKE IN BED, A/O X 4, STABLE NO FACIAL GRIMACING NOTED FOR PAIN. NO SOB OR DISTRESS NOTED, CALL LIGHT WITHIN REACH. SAFETY MEASURES IMPLEMENTED. WILL CONTINUE TO MONITOR THROUGHOUT SHIFT. Addendum: 01/11/18 at 0305 by KAREN JAMES RN PT RECEIVED WITHOUT IV HEPLOCK PT BEEN REFUSING IV INSERTION
[2018-01-10 20:00] VITALS: BP 144/94
--- NOTE | 2018-01-10 21:19 | NUR ---
PT AGREED NOW TO HAVE IV INSERTION TEDDY PROCEDURE WELL
[2018-01-10] MEDS: CEFTRIAXONE 1 G in IV D5W 50 ML IV SCH (21:29)
[2018-01-10] MEDS: ATORVASTATIN 10 MG TABLET PO SCH (21:29)
[2018-01-10] MEDS: IV NS 0.9% 1,000 ML IV SCH (22:42)
[2018-01-11] MEDS: ALBUTEROL FS 2.5 MG/0.5 ML VIAL.NEB NEB SCH ×3 (00:58→13:08)
[2018-01-11] MEDS: IPRATROPIUM NEB FS 0.5 MG/2.5 ML AMPUL.NEB NEB SCH ×3 (00:58→13:08)
[2018-01-11] MEDS: IV NS 0.9% 1,000 ML IV SCH ×2 (04:43→13:57)
[2018-01-11] MEDS: AZITHROMYCIN 250 MG in IV D5W 250 ML IV SCH (04:53)
--- NOTE | 2018-01-11 06:13 | NUR ---
MS RN CLOSING NOTES PT COMFORTABLY ASLEEP AND EASILY AWAKEN, A/O X 4, IN STABLE CONDITION. RESPIRATION EVEN AND UNLABORED. KEPT CLEAN AND DRY AND COMFORTABLE, ALL NURSING CARE RENDERED. NEEDS ATTENDED AND ANTICIPATED, GOOD SKIN CARE PROVIDED. FREQUENT VISUAL CHECK DONE FOR SAFETY EVERY 2 HOURS. ON LOW BED AT ALL TIMES TO ENSURE SAFETY. SAFE HAZARD FREE ENVIRONMENT PROVIDED. NO COMPLAINS OF PAIN. ASSIST REPOSITION EVERY 2 HOURS. CALL LIGHT WITHIN EASY TO REACH. WILL ENDORSE NEXT SHIFT CONTINUITY OF CARE.
--- NOTE | 2018-01-11 07:30 | NUR ---
RN MS OPENING NOTES RECEIVED PATIENT IN BED AWAKE, IN STABLE CONDITION. ALERT AND ORIENTED X4, VERBALLY RESPONSIVE, ABLE TO MAKE NEEDS KNOWN. BREATHING EVEN AND UNLABORED. ON ROOM AIR - TOLERATING WELL. SKIN DRY AND WARM TO TOUCH. IV ON RIGHT HAND #22 INTACT AND PATENT. CURRENTLY WITH NO COMPLAINTS OF PAIN OR DISCOMFORT. ALL OTHER NEEDS ATTENDED TO. CALL LIGHT WITHIN REACH. BED ON LOWEST LOCKED POSITION. WILL CONTINUE TO MONITOR.
[2018-01-11 07:32] LABS: CALCIUM, SERUM 8.6 mg/dL (8.5-10.1); CREATININE 0.8 mg/dL (0.6-1.3); POTASSIUM 3.6 mmol/L (3.5-5.1)
[2018-01-11 08:23] VITALS: BP 162/95
[2018-01-11] MEDS: ENOXAPARIN SODIUM 30 MG/0.3 ML DISP.SYRIN SQ SCH ×2 (09:00→09:13)
[2018-01-11] MEDS ORDERED: TIOTROPIUM BROMIDE 6 CAP/BOX CAP.W.DEV IH SCH (09:00)
[2018-01-11] MEDS: VENLAFAXINE XR 37.5 MG CAP.SR.24H PO SCH (09:11)
[2018-01-11] MEDS: SPIRIVA INHALER INH SCH (09:11)
[2018-01-11] MEDS: LACTOBACILLUS RHAMNOSUS GG 1 EACH CAP.SPRINK PO SCH ×2 (09:11→16:16)
--- NOTE | 2018-01-11 15:25 | NUR ---
RN MS NOTES PATIENT NOTED WITH CONSISTENTLY HIGH BLOOD PRESSURE. BP 174/85 ON LEFT ARM AND 195/105 ON THE LEFT ARM. RE-CHECKED BLOOD PRESSURE AGAIN ON THE LEFT ARM USING THE MANUAL CUFF AND NOTED IT TO BE 170/94. PAGED DR. BURDICK AND MADE AWARE. PER DR. BURDICK, START PATIENT ON LISINOPRIL 20MG PO QD. PATIENT WAS MADE AWARE WITH INSTRUCTIONS TO CHECK BP EVERY DAY. PATIENT VERBALIZED UNDERSTANDING.
[2018-01-11] MEDS ORDERED: LISINOPRIL (20MG) 20 MG TABLET PO SCH (15:30)
[2018-01-11 16:00] VITALS: BP 163/88
--- NOTE | 2018-01-11 17:35 | NUR ---
CASTING WHEEL OPERATOR NOTES PATIENT DISCHARGE TO HOME VIA PRIVATE CAREGIVER (KATHRIN), IN STABLE CONDITION. NO SOB NOTED. BREATHING EVEN AND UNLABORED. NO COMPLAINTS OF PAIN OR DISCOMFORT. IV LINE ON RIGHT HAND #22 REMOVED AND APPLIED PRESSURE. DISCUSSED DISCHARGED PAPER WORKS WITH PATIENT, WITH INSTRUCTIONS ON HOW AND WHEN TO TAKE MEDICATIONS - VERBALIZED UNDERSTANDING. ALSO GAVE EDUCATION ON WHEN AND HOW TO TAKE BLOOD PRESSURE - PATIENT AND CAREGIVER VERBALIZED UNDERSTANDING. INSTRUCTED PATIENT TO FOLLOW-UP WITH PCP, AND TO CALL 911 IN CASE OF EMERGENCY. ALL BELONGINGS ACCOUNTED FOR WITH BELONGINGS FORM SIGNED BY PATIENT. FINAL SKIN CHECK RENDERED WITH NO NEW SKIN ISSUES NOTED. PATIENT WAS ASSISTED OUT TO LOBBY BY MILIEU MANAGER AND PRIVATE CAREGIVER.
[2018-01-12] MEDS ORDERED: AZITHROMYCIN 250 MG TABLET PO SCH (09:00)
== END 2018-01-11 18:08 | disposition home or self-care (01) | DRG 690 ==
LOC: ER 21:21 → TELE 01-09 01:01 → MED 01-09 08:47
PROVIDERS: ADMIT Registered Nurse; ATTEND Family Medicine
DX: N39.0 Urinary tract infection, site not specified (principal); G35 Multiple sclerosis; K21.9 Gastro-esophageal reflux disease without esophagitis; Z90.710 Acquired absence of both cervix and uterus; Z90.49 Acquired absence of other specified parts of digestive tract; Z98.890 Other specified postprocedural states; Z88.6 Allergy status to analgesic agent; Z88.5 Allergy status to narcotic agent; Z79.899 Other long term (current) drug therapy; J44.9 Chronic obstructive pulmonary disease, unspecified; B96.20 Unspecified Escherichia coli [E. coli] as the cause of diseases classified elsewhere; E87.6 Hypokalemia; F17.200 Nicotine dependence, unspecified, uncomplicated
CPT/HCPCS: 36415; 70450-TC; 71045-TC; 80048-TC; 80061-TC; 80076-TC; 81000-TC; 83605-TC; 83735-TC; 83880; 84100-TC; 84443-TC; 84484-TC; 85025-TC; 87040-TC; 87081-TC; 87086-TC; 87186-TC; 90732; 93307-TC; 97110-TC; 97530-TC; A4606; J0360; J0456; J0696; J1650; J2405; J3370; J7030; J7040; J7060; Q9967; Z7610

== ENCOUNTER 2018-04-24 05:09 | Inpatient (IN) | payer MEDICARE, OTHER ==
[~2018-04-24] VITALS: Ht 160 cm; Wt 65.3 kg
[~2018-04-24 05:09] MED LIST changes: +ALBU18HF2 IH; +AUBAGIO PO
--- NOTE | 2018-04-24 05:15 | NUR ---
BIB RA TO ER BED 9 C/O RT BACK/ FLANK PAIN X 1 DAY. AA/OX4. PAIN NON RADIATING, PRESSURE/ SHARP PAIN. DENIES N/V/D. DENIES ANY DIFFICULTY WITH URINATION. NO S/S SOB. SKIN PINK, WARM, DRY. HX OF MS. WOODRUFF. VSS. STABLE CONDITION. WILL CONTINUE TO MONITOR.
--- NOTE | 2018-04-24 06:18 | NUR ---
BROUGHT TO CT Addendum: 04/24/18 at 0618 by YUSUF LAB AT BEDSIDE.
[2018-04-24 06:26] LABS: BASOPHILS # (AUTO) 0.1 /CMM (0.0-0.2); EOSINOPHILS % (AUTO) 3.6 % (0.0-6.0); HEMATOCRIT 44 % (33-45); HEMOGLOBIN 14.4 g/dL (11.5-14.8); LYMPHOCYTES # (AUTO) 1.8 /CMM (0.8-4.8); MEAN CORPUSCULAR HGB CONC 33 g/dl (31.0-36.0); MEAN CORPUSCULAR VOLUME 93 fL (82-100); MONOCYTES # (AUTO) 0.7 /CMM (0.1-1.30); MONOCYTES % (AUTO) 7.1 % (2.0-12.0); NEUTROPHILS # (AUTO) 6.3 /CMM (1.8-8.9); NEUTROPHILS % (AUTO) 68.3 % (43.0-81.0); PLATELET COUNT (AUTO) 213 /CMM (150-450); RDW COEFFICIENT OF VARIATION 14.4 (11.5-15.0); RED BLOOD CELL COUNT(AUTO) 4.76 MIL/uL (4.0-5.2); WHITE BLOOD COUNT (AUTO) 9.2 K/uL (4.3-11.0)
[2018-04-24 06:36] LABS: CALCIUM, SERUM 9.6 mg/dL (8.5-10.1); CARBON DIOXIDE 26 mmol/L (21-32); CHLORIDE 105 mmol/L (98-107); CREATININE 0.9 mg/dL (0.6-1.3); GLUCOSE 114 mg/dL (74-106); POTASSIUM 3.5 mmol/L (3.5-5.1); SODIUM SERUM 141 mmol/L (136-145); UREA NITROGEN, BLOOD 18 mg/dL (7-18)
[2018-04-24 06:41] LABS: ALANINE AMINOTRANSFERASE 14 U/L (12-78); ALBUMIN 3.7 g/dL (3.4-5.0); ALKALINE PHOSPHATASE 65 U/L (46-116); ASPARTATE AMINOTRANSFERASE 13 U/L (15-37); BILIRUBIN,DIRECT 0.1 mg/dL (0.0-0.2); BILIRUBIN,TOTAL 0.4 mg/dL (0.2-1.0); LIPASE 168 U/L (73-393); TOTAL PROTEIN, SERUM 7.1 g/dL (6.4-8.2)
[2018-04-24 06:43] LABS: TROPONIN I < 0.017 ng/mL (0.00-0.056)
--- NOTE | 2018-04-24 06:59 | NUR ---
Patient is resting comfortably in bed with eyes closed. Easily aroused. VSS
[2018-04-24 07:07] LABS: APPEARANCE,URINE CLOUDY (CLEAR); BILIRUBIN,URINE NEGATIVE (NEGATIVE); BLOOD, URINE TRACE-INTA Ery/uL (NEGATIVE); COLOR,URINE YELLOW (YELLOW); KETONES,URINE NEGATIVE (NEGATIVE); LEUKOCYTE ESTERASE ,URINE TRACE (NEGATIVE); NITRITE, URINE POSITIVE (NEGATIVE); PROTEIN,URINE TRACE mg/dl (NEGATIVE); UGLUCOSE NEGATIVE (NEGATIVE); UROBILINOGEN,URINE 0.2 EU/dL (0.2)
--- NOTE | 2018-04-24 07:10 | NUR ---
Marbella ramirez in ED - 04/24/18 at 0712 by YUSUF ENDORSED TO ONCOMING ESTRELLA VELASQUEZ. STABLE CONDITION.
--- NOTE | 2018-04-24 07:13 | NUR ---
ENDORSED TO ONCOMING SHIFT LEONELA BARRY. RANJAN. VSS. STABLE CONDITION.
--- NOTE | 2018-04-24 07:16 | NUR ---
RECEIVED REPORT FROM WORKERS COMPENSATION CLAIMS ADJUSTER PATIENT JUST GOT BACK FROM CT. SLEEPING. STABLE AT THIS TIME. NO COMPLAINT OF PAIN. WILL CONTINUE TO MONITOR.
[2018-04-24 07:18] LABS: BACTERIA,URINE Many /HPF (None Seen); SQUAMOUS EPITHELIAL CELL,UR Few /HPF (None Seen)
[2018-04-24] MEDS ORDERED: CEFTRIAXONE 1GM BAG (ER ONLY) 1 GM/50 ML PIGGYBACK IV ONE (07:30)
[2018-04-24] MEDS ORDERED: TIOT4MIS2 IH (07:45)
--- NOTE | 2018-04-24 08:29 | NUR ---
REPORT GIVEN TO NOEL FOR IZABELA GOING TO MED SURG ROOM 320-2
--- NOTE | 2018-04-24 08:55 | NUR ---
PATIENT LEFT VIA GURNEY ACCOMPANIED BY EMT TO ROOM 320-2.
[2018-04-24 09:00] VITALS: BP 159/85
--- NOTE | 2018-04-24 09:00 | NUR ---
RECEIEVED PATIENT FROM ER VIA [facility]. DX UTI. PATIENT IS A/OX3-4, ABLE TO MAKE NEEDS KNOWN, NON-AMBULATORY. NO ACUTE DISTRESS, NO SOB. COMPLIANTS OF BACK PAIN 02/24, WILL ADMINISTER PAIN MEDS ORDERED. IV SITE INTACT AND PATENT. KEPT PATIENT SAFE AND COMFORTABLE. ALL BELONGINGS CHECK, NOTED ON LIST. SKIN PHOTOS TAKEN. BED IN LOW/LOCKED POSITION, SIDERAILS UPX2, CALL LIGHT IN REACH. WILL CONTINUE TO MONITOR ACCORDINGLY.
--- NOTE | 2018-04-24 09:54 | NUR ---
Per vickie Coronado to give morphine, verified x2.
[2018-04-24] MEDS ORDERED: TIOTROPIUM BROMIDE 6 CAP/BOX CAP.W.DEV IH SCH (10:00)
[2018-04-24] MEDS ORDERED: ONDANSETRON HCL/PF 4 MG/2 ML VIAL IVP PRN (10:00)
[2018-04-24] MEDS ORDERED: MORPHINE SULFATE INJ 2 MG/ML DISP.SYRIN IM PRN (10:00)
[2018-04-24] MEDS ORDERED: MAG HYDROX/AL HYDROX/SIMETH 30 ML UDC PO PRN (10:00)
[2018-04-24] MEDS ORDERED: Z GUARD REMEDY 2 OZ OINT TP PRN (10:00)
[2018-04-24] MEDS ORDERED: ZOLPIDEM TARTRATE 5 MG TABLET PO PRN (10:00)
[2018-04-24] MEDS ORDERED: MAGNESIUM HYDROXIDE 30 ML UDC PO PRN (10:00)
[2018-04-24] MEDS ORDERED: KETOROLAC TROMETHAMINE 10 MG TABLET PO PRN (10:00)
[2018-04-24] MEDS: IV NS 0.9% 1,000 ML IV PRN (10:11)
[2018-04-24] MEDS: MORPHINE SULFATE INJ 4 MG/ML DISP.SYRIN IV PRN ×3 (10:30→22:09)
[2018-04-24] MEDS: ENOXAPARIN SODIUM 40 MG/0.4 ML DISP.SYRIN SQ SCH (10:35)
[2018-04-24] MEDS ORDERED: ALBUTEROL FS 2.5 MG/0.5 ML VIAL.NEB NEB PRN (13:30)
[2018-04-24] MEDS: IPRATROPIUM NEB FS 0.5 MG/2.5 ML AMPUL.NEB NEB SCH ×2 (15:09→19:19)
[2018-04-24 16:00] VITALS: BP 159/90
--- NOTE | 2018-04-24 18:00 | NUR ---
TURNED AND REPOSITIONED PATIENT EVERY 2HRS NEEDED.
[2018-04-24] MEDS: METOPROLOL TARTRATE 25 MG TABLET PO SCH ×2 (18:02→23:55)
--- NOTE | 2018-04-24 19:20 | NUR ---
PATIENT IN STABLE CONDITION. ALL NEEDS ATTENDED AND PROVIDED. ALL DUE MEDICATIONS GIVEN ORDERED. KEPT PATIENT SAFE AND COMFORTABLE. BED IN LOW/LOCKED POSITION, HOB ELEVATED, SIDERAILS UPX2, CALL LIGHT IN REACH. ENDORSED TO NIGHT RN FOR IZABELA.
--- NOTE | 2018-04-24 19:21 | NUR ---
MS GIPSON OPENING NOTES: RECEIVED PT ON ROOM AIR AND IS SEMI-BELL'S POSITION. PT HAS IV AND IS INTACT. CURRENTLY H/L. NO SOB NOTED. NO S/S OF DISTRESS NOTED. PT IS AWAKE AT THIS TIME AND RESTING COMFORTABLY. CALL LIGHT WITHIN PT'S REACH. BED KEPT IN LOW, LOCKED POSITION, AND SIDE RAILS X 2UP. WILL CONTINUE TO MONITOR PT. Addendum: 04/24/18 at 1929 by JOSSELINE BLACKMON RN PT TO BE CONNECTED ON IV FLUIDS AT NS 75ML/HR.
[2018-04-24 20:00] VITALS: BP 160/85
[2018-04-24] MEDS: ATORVASTATIN 10 MG TABLET PO SCH (21:33)
[2018-04-24] MEDS ORDERED: PRAVASTATIN SODIUM 20 MG TABLET PO SCH (22:00)
[2018-04-25] MEDS: IPRATROPIUM NEB FS 0.5 MG/2.5 ML AMPUL.NEB NEB SCH ×6 (00:57→23:30)
[2018-04-25] MEDS: MORPHINE SULFATE INJ 4 MG/ML DISP.SYRIN IV PRN ×2 (02:17→07:01)
[2018-04-25 05:23] VITALS: BP 160/80
[2018-04-25] MEDS: METOPROLOL TARTRATE 25 MG TABLET PO SCH ×4 (05:23→23:25)
[2018-04-25] MEDS: IV NS 0.9% 1,000 ML IV PRN ×2 (06:37→18:13)
--- NOTE | 2018-04-25 06:53 | NUR ---
MS RN CLOSING NOTES: ALL NEEDS WERE ATTENDED AND ANTICIPATED FOR. PT KEPT CLEAN, DRY, AND COMFORTABLE. PT TURNED AND REPOSITIONED. PT RESTING COMFORTABLY IN BED. PT HAS IV ON R HAND #18G AND IS BEING INFUSED WITH IV NS AT 75ML/HR. BILATERAL SCD PUMPS IN PLACE. CALL LIGHT WITHIN PT'S REACH. BED KEPT IN LOW, LOCKED POSITION, AND SIDE RAILS X 2UP. WILL ENDORSE TO AM NURSE FOR IZABELA.
--- NOTE | 2018-04-25 07:05 | NUR ---
MS RN OPENING NOTE RECEIVED PT IN BED, ALERT AND ORIENTED X3. DENIES N/V, CHEST PAIN, SOB AT THIS TIME. BREATHING IS EVEN AND UNLABORED ON ROOM AIR. R HAND #18G IV IS INFUSING NS @ 75ML/HR WITHOUT REDNESS OR SWELLING. BILATERAL SCD PUMPS IN PLACE, ALL NEEDS ATTENDED TO, BED IS LOCKED AND IN LOWEST POSITION, SIDE RAILS UP X2, CALL LIGHT IS WITHIN REACH.
[2018-04-25 07:09] LABS: BASOPHILS # (AUTO) 0.1 /CMM (0.0-0.2); BASOPHILS % (AUTO) 0.9 % (0.0-2.0); EOSINOPHILS % (AUTO) 2.6 % (0.0-6.0); HEMATOCRIT 44 % (33-45); HEMOGLOBIN 14.2 g/dL (11.5-14.8); LYMPHOCYTES # (AUTO) 1.4 /CMM (0.8-4.8); LYMPHOCYTES % (AUTO) 13.6 % (20.0-44.0); MEAN CORPUSCULAR HGB CONC 32 g/dl (31.0-36.0); MEAN CORPUSCULAR VOLUME 94 fL (82-100); MONOCYTES # (AUTO) 0.6 /CMM (0.1-1.30); MONOCYTES % (AUTO) 5.9 % (2.0-12.0); NEUTROPHILS # (AUTO) 7.7 /CMM (1.8-8.9); PLATELET COUNT (AUTO) 207 /CMM (150-450); RDW COEFFICIENT OF VARIATION 14.5 (11.5-15.0); RED BLOOD CELL COUNT(AUTO) 4.71 MIL/uL (4.0-5.2)
[2018-04-25 07:11] LABS: THYROID STIMULATING HORMONE 1.82 uIU/mL (0.358-3.74)
[2018-04-25 07:24] LABS: CALCIUM, SERUM 8.8 mg/dL (8.5-10.1); CREATININE 0.7 mg/dL (0.6-1.3); MAGNESIUM 1.9 mg/dL (1.8-2.4); PHOSPHORUS 2.3 mg/dL (2.5-4.9); POTASSIUM 3.7 mmol/L (3.5-5.1)
[2018-04-25 08:00] VITALS: BP 165/81
[2018-04-25] MEDS: VENLAFAXINE XR 37.5 MG CAP.SR.24H PO SCH (08:44)
[2018-04-25] MEDS: CEFTRIAXONE 1 G in IV D5W 50 ML IV SCH (08:44)
[2018-04-25] MEDS: methylPREDNISolone SOD SUCC 40 MG/ML VIAL IV SCH ×3 (09:31→17:08)
[2018-04-25] MEDS: ENOXAPARIN SODIUM 40 MG/0.4 ML DISP.SYRIN SQ SCH (09:36)
--- NOTE | 2018-04-25 09:50 | NUR ---
WOUND CARE CONSULT: PT PRESENTS WITH SACRAL/BUTTOCKS SCARRING, RT ABDOMINAL FOLD REDNESS WITH MOISTURE ASSOCIATED OPEN SKIN AND DRY SCRATCHES TO LEGS, PRESENT ON ADMISSION. RECOMMENDATIONS MADE FOR SKIN PROTECTION AND CARE. DISCUSSED WITH NURSING STAFF. CURRENT YI SCORE IS 14. WILL SEE PRN. MUKHERJEE IN AGREEMENT WITH PLAN OF CARE. Addendum: 04/25/18 at 0952 by JENNIFER TORRES WNDNU Amended: Links added.
[2018-04-25] MEDS ORDERED: K PHOS NEUTRAL 250 MG TABLET PO ONE (12:00)
[2018-04-25 16:00] VITALS: BP 155/81
--- NOTE | 2018-04-25 19:06 | NUR ---
MS RN CLOSING NOTE PT IN BED, ALERT AND ORIENTED X4, DENIES N/V, CHEST PAIN, SOB. BREATHING IS EVEN AND UNLABORED ON ROOM AIR. R HAND #18G IV IS INFUSING NS @ 75ML/HR WITHOUT REDNESS OR SWELLING. PT TURNED AND REPOSITIONED Q2H FOR THE DURATION OF THE SHIFT. ALL NEEDS ATTENDED TO, BED IS LOCKED AND IN LOWEST POSITION, SIDE RAILS UP X2. WILL ENDORSE TO OPS ANALYST RN FOR CONTINUITY OF CARE.
--- NOTE | 2018-04-25 19:10 | NUR ---
MS RN OPENING NOTES Received patient on semi-Peterson's position on bed, with patent peripheral IV line R hand G#18 with Ns infusing well @ 75ml/hr as ordered, no s/s of infiltration noted. Denies any discomfort at this time. Call light within easy reach. Bed kept low and locked, siderails X2 up. Will continue to monitor accordingly.
[2018-04-25 20:00] VITALS: BP 128/89
[2018-04-25] MEDS: ATORVASTATIN 10 MG TABLET PO SCH (21:37)
[2018-04-26] MEDS: IPRATROPIUM NEB FS 0.5 MG/2.5 ML AMPUL.NEB NEB SCH ×5 (03:30→20:04)
[2018-04-26] MEDS: METOPROLOL TARTRATE 25 MG TABLET PO SCH ×4 (05:26→23:49)
--- NOTE | 2018-04-26 06:42 | NUR ---
MS RN CLOSING NOTES Patient asleep on Peterson's position with patent peripheral IV line R hand G#18 with NS infusing well @ 75ml/hr. Denies discomfort at this time. All needs attended. Kept clean, dry and comfortable. Call light at bedside. Endorsed to the next shift.
[2018-04-26] MEDS: IV NS 0.9% 1,000 ML IV PRN (06:52)
[2018-04-26] MEDS: MORPHINE SULFATE INJ 4 MG/ML DISP.SYRIN IV PRN (06:58)
--- NOTE | 2018-04-26 07:05 | NUR ---
MS RN OPENING NOTE PT IN BED, ALERT AND ORIENTED X 3-4. DENIES N/V, CHEST PAIN, SOB. BREATHING IS EVEN AND UNLABORED ON ROOM AIR. R HAND #18G IV IS INFUSING NS @ 75ML/HR WITHOUT REDNESS OR SWELLING. SCDS ARE IN PLACE. ALL NEEDS ATTENDED TO. BED IS LOCKED AND IN LOWEST POSITION, SIDE RAILS UP X2, BED ALARM IS ON, CALL LIGHT IS WITHIN REACH.
[2018-04-26 07:25] LABS: CALCIUM, SERUM 8.4 mg/dL (8.5-10.1); CREATININE 0.8 mg/dL (0.6-1.3); PHOSPHORUS 2.6 mg/dL (2.5-4.9); POTASSIUM 3.4 mmol/L (3.5-5.1)
[2018-04-26 08:00] VITALS: BP 157/81
[2018-04-26] MEDS: VENLAFAXINE XR 37.5 MG CAP.SR.24H PO SCH (08:46)
[2018-04-26] MEDS: methylPREDNISolone SOD SUCC 40 MG/ML VIAL IV SCH ×3 (08:46→17:07)
[2018-04-26] MEDS: CEFTRIAXONE 1 G in IV D5W 50 ML IV SCH (08:48)
[2018-04-26] MEDS: ENOXAPARIN SODIUM 40 MG/0.4 ML DISP.SYRIN SQ SCH (09:03)
[2018-04-26] MEDS ORDERED: POTASSIUM CHLORIDE 20 MEQ TAB.PRT.SR PO ONE (11:00)
[2018-04-26 16:00] VITALS: BP_SYST 152; BP_DIAS 62; BP_DIAS 68
--- NOTE | 2018-04-26 18:15 | NUR ---
MS RN CLOSING NOTE PT SITTING UP IN CHAIR, ALERT AND ORIENTED X4. DENIES N/V, CHEST PAIN, SOB. BREATHING IS EVEN AND UNLABORED ON ROOM AIR. R HAND #18G IV IS INFUSING NS @ 75ML/HR WITHOUT REDNESS OR SWELLING. PT TURNED AND REPOSITIONED Q2H FOR THE DURATION OF THE SHIFT. ALL NEEDS ATTENDED TO. BED IS LOCKED AND IN LOWEST POSITION, SIDE RAILS UP X2, CALL LIGHT IS WITHIN REACH. WILL ENDORSE TO [employer]RIER OPERATOR RN FOR CONTINUITY OF CARE.
--- NOTE | 2018-04-26 19:00 | NUR ---
MS RN NEW IV INSERTED R HAND IV FOUND TO BE LEAKING AND PAINFUL WHEN FLUSHED. R WRIST #22G IV INSERTED AND IS PATENT, CLEAN, DRY AND INTACT.
--- NOTE | 2018-04-26 19:15 | NUR ---
RN INITIAL NOTES Received patient in bed, alert, oriented x 2-3. Breathing even and unlabored. Not in any distress. Peripheral IV infusing at 75mL/hr. No complaints as of this time. Call hua within reach. Bed in low, locked position. Patient stable as endorsed by the morning shift RN. Will continue to monitor accordingly
[2018-04-26 20:00] VITALS: BP 122/93
[2018-04-26] MEDS: ATORVASTATIN 10 MG TABLET PO SCH (21:19)
[2018-04-26 23:51] VITALS: BP 168/79
[2018-04-27] MEDS: IPRATROPIUM NEB FS 0.5 MG/2.5 ML AMPUL.NEB NEB SCH ×5 (00:26→15:18)
[2018-04-27] MEDS: IV NS 0.9% 1,000 ML IV PRN (00:48)
[2018-04-27] MEDS: MORPHINE SULFATE INJ 4 MG/ML DISP.SYRIN IV PRN (02:58)
--- NOTE | 2018-04-27 03:00 | NUR ---
RN NOTES Patient complained of hip and back pain, 02/24. Morphine 2mg given as ordered
[2018-04-27] MEDS: METOPROLOL TARTRATE 25 MG TABLET PO SCH ×2 (05:38→12:18)
--- NOTE | 2018-04-27 06:47 | NUR ---
RN CLOSING NOTES Patient sitting up in bed, alert, oriented x 3. Breathing even and unlabored. Not in any distress. Peripheral IV infusing at 75mL/hr. No complaints as of this time. All needs attended to. All due medications given as ordered. Call hua within reach. Bed in low, locked position. SCD's in place. Will endorse [email or web address] to oncoming RN.
[2018-04-27 07:21] LABS: CALCIUM, SERUM 8.6 mg/dL (8.5-10.1); CREATININE 0.7 mg/dL (0.6-1.3); POTASSIUM 3.6 mmol/L (3.5-5.1)
--- NOTE | 2018-04-27 07:52 | NUR ---
MS RN OPENING NOTES RECEIVED PATIENT IN STABLE CONDITION. IN NO APPARENT DISTRESS. BEDSIDE RAILS ARE UPX2. BED IS LOCKED AND LOWERED. CALL LIGHT IS WITHIN REACH. IV LINE IS INTACT AND PATENT. WILL CONTINUE TO MONITOR PATIENT.
[2018-04-27 08:00] VITALS: BP 151/80
--- NOTE | 2018-04-27 08:06 | NUR ---
PT REFUSED RESP TX AT THIS TIME. NO S/S OF SOB NOTED. WILL CONT TO MONITOR Addendum: 04/27/18 at 0806 by KATHY HUA RT Amended: Links added.
[2018-04-27] MEDS: methylPREDNISolone SOD SUCC 40 MG/ML VIAL IV SCH ×2 (08:30→12:18)
[2018-04-27] MEDS: VENLAFAXINE XR 37.5 MG CAP.SR.24H PO SCH (08:30)
[2018-04-27] MEDS: CEFTRIAXONE 1 G in IV D5W 50 ML IV SCH (08:30)
[2018-04-27] MEDS: ENOXAPARIN SODIUM 40 MG/0.4 ML DISP.SYRIN SQ SCH (10:00)
[2018-04-27 12:18] VITALS: BP 152/81
--- NOTE | 2018-04-27 13:24 | NUR ---
PATIENT REFUSED TO HAVE PICTURES TAKEN UPON DISCHARGED. EXPLAINED REASON FOR TAKING PICTURES UPON DISCHARGE. PATIENT CONTINUES TO REFUSE.
--- NOTE | 2018-04-27 13:55 | NUR ---
PATIENT WAS DISCHARGED IN STABLE CONDITION. IN NO APPARENT DISTRESS. BELONGINGS WERE CHECKED AND PROVIDED TO THE PATIENT. EXITCARE WAS SIGNED AND PROVIDED TO THE PATIENT. MEDICATION PRESCRIPTION WAS PROVIDED TO THE PATIENT. IV LINE WAS REMOVED. ID BAND WAS REMOVED. ALL NEEDS WERE MET. PATIENT REFUSED TO HAVE DISCHARGE PICTURES TAKEN. EXPLAINED THE IMPORTANCE OF HAVING DISCHARGE PICTURES TAKEN BUT PATIENT CONTINUED TO REFUSE. PATIENT ESCORTED OUT OF THE FACILITY VIA WHEELCHAIR BY TONY Gabriel AND CAREGIVER. CAREGIVER TO DRIVE PATIENT HOME SAFELY.
== END 2018-04-27 14:00 | disposition home or self-care (01) | DRG 689 ==
LOC: ER 05:12 → MED 08:41
DX: N39.0 Urinary tract infection, site not specified (principal); J96.20 Acute and chronic respiratory failure, unspecified whether with hypoxia or hypercapnia; N20.0 Calculus of kidney; G35 Multiple sclerosis; K21.9 Gastro-esophageal reflux disease without esophagitis; J44.9 Chronic obstructive pulmonary disease, unspecified; I10 Essential (primary) hypertension; Z90.49 Acquired absence of other specified parts of digestive tract; Z90.710 Acquired absence of both cervix and uterus; F17.210 Nicotine dependence, cigarettes, uncomplicated; E87.6 Hypokalemia; E78.5 Hyperlipidemia, unspecified
CPT/HCPCS: 36415; 80048-TC; 80061-TC; 80076-TC; 81000-TC; 83690-TC; 83735-TC; 84100-TC; 84443-TC; 84484-TC; 85025-TC; 87081-TC; 87086-TC; 87186-TC; 94760-TC; 94799-TC; A4606; J0696; J1650; J2270; J2920; J7030; J7060; Z7610

== ENCOUNTER 2018-04-29 04:43 | Emergency (ER) | payer MEDICARE, OTHER ==
[~2018-04-29] VITALS: Ht 160 cm; Wt 65.8 kg
[~2018-04-29 04:43] MED LIST changes: -ALBU18HF2 IH; -CEPH-570 PO; -DIME1CAP PO; -METO5TAB2 PO; -TIOT18CA3 INH; +TIOT4MIS2 IH
--- NOTE | 2018-04-29 05:00 | NUR ---
PT TO ER BED 7. [id number] C/O FLANK PAIN WITH DIFFICULTY URINATING X 4 HOURS. RECENT D/C FROM HOSPITAL ADM HERE FOR UTI. 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 VSS/RESP EVEN UNLABORED/NAD NOTED/SKIN WARM AND DRY/AFEBRILE/DENIES N-V-D/AOX4. AWAITNG MD [place].
--- NOTE | 2018-04-29 05:15 | NUR ---
16 FR melton catheter inserted per sterile protocal. Immediate output 200 ML of urine, color clear, clarity clear. Urine specimen obtained and sent to the lab.
[2018-04-29] MEDS ORDERED: IV NS 0.9% 500 ML BAG IV ONE (05:30)
--- NOTE | 2018-04-29 05:30 | NUR ---
20G IV TO L HAND X 1 ATTEMPT USING ASEPTIC TECH, BLOOD CULT X 2 AND BLOOD HANDED OVER TO THE LAB AT BEDSIDE. IV FLUSHES EASILY WITH NS, NO S/S INFILTRATION NOTED AT THIS TIME.
[2018-04-29] MEDS ORDERED: MORPHINE SULFATE INJ 4 MG/ML DISP.SYRIN ONE (05:35)
[2018-04-29] MEDS ORDERED: ONDANSETRON HCL/PF 4 MG/2 ML VIAL ONE (05:35)
[2018-04-29 05:45] LABS: BASOPHILS # (AUTO) 0.1 /CMM (0.0-0.2); BASOPHILS % (AUTO) 0.6 % (0.0-2.0); EOSINOPHILS % (AUTO) 1.8 % (0.0-6.0); HEMATOCRIT 46 % (33-45); HEMOGLOBIN 14.9 g/dL (11.5-14.8); LYMPHOCYTES # (AUTO) 3.4 /CMM (0.8-4.8); MEAN CORPUSCULAR HGB CONC 33 g/dl (31.0-36.0); MEAN CORPUSCULAR VOLUME 92 fL (82-100); MONOCYTES % (AUTO) 8.8 % (2.0-12.0); NEUTROPHILS # (AUTO) 6.6 /CMM (1.8-8.9); NEUTROPHILS % (AUTO) 58.8 % (43.0-81.0); PLATELET COUNT (AUTO) 227 /CMM (150-450); RDW COEFFICIENT OF VARIATION 15.2 (11.5-15.0); RED BLOOD CELL COUNT(AUTO) 5.03 MIL/uL (4.0-5.2); WHITE BLOOD COUNT (AUTO) 11.2 K/uL (4.3-11.0)
[2018-04-29 05:49] LABS: APPEARANCE,URINE SL CLOUDY (CLEAR); BILIRUBIN,URINE NEGATIVE (NEGATIVE); BLOOD, URINE 3+ Ery/uL (NEGATIVE); KETONES,URINE NEGATIVE (NEGATIVE); LEUKOCYTE ESTERASE ,URINE NEGATIVE (NEGATIVE); NITRITE, URINE NEGATIVE (NEGATIVE); PROTEIN,URINE 1+ mg/dl (NEGATIVE); UGLUCOSE NEGATIVE (NEGATIVE); UROBILINOGEN,URINE 0.2 EU/dL (0.2)
[2018-04-29] MEDS ORDERED: MORPHINE SULFATE INJ 2 MG/ML DISP.SYRIN IV ONE (06:00)
[2018-04-29] MEDS ORDERED: ONDANSETRON HCL/PF 4 MG/2 ML VIAL IV ONE (06:00)
[2018-04-29 06:01] LABS: COLOR,URINE YELLOW (YELLOW)
[2018-04-29 06:06] LABS: ALBUMIN 3.7 g/dL (3.4-5.0); BILIRUBIN,DIRECT 0.1 mg/dL (0.0-0.2); BILIRUBIN,TOTAL 0.5 mg/dL (0.2-1.0); CALCIUM, SERUM 9.2 mg/dL (8.5-10.1); CREATININE 0.9 mg/dL (0.6-1.3); POTASSIUM 3.5 mmol/L (3.5-5.1); TOTAL PROTEIN, SERUM 7.2 g/dL (6.4-8.2)
[2018-04-29 06:14] LABS: BACTERIA,URINE Many /HPF (None Seen); RBC,URINE 81-100 /HPF (0-2); SQUAMOUS EPITHELIAL CELL,UR Moderate /HPF (None Seen)
[2018-04-29 06:15] LABS: MUCUS,URINE Few /LPF (None Seen)
--- NOTE | 2018-04-29 06:29 | NUR ---
MILY, CAREGIVER AWARE PT WILL BE TRANSFERRED BACK HOME VIA [facility].
--- NOTE | 2018-04-29 06:35 | NUR ---
PER [facility] ETA TRANSPORT 7:45AM - 8AM TRIP [id number]
--- NOTE | 2018-04-29 07:18 | NUR ---
REPORT GIVEN TO LEONELA ALVARADO FOR IZABELA.
--- NOTE | 2018-04-29 07:42 | NUR ---
CALLED KATHRIN RICE , NOTIFIED PT WILL BE DISCHARGE HOME
--- NOTE | 2018-04-29 07:58 | NUR ---
PT RESTING PENDINH DISCHARGE 0/10 PAIN PENDING AMBULANCE TRANSPORT TO HOME.
--- NOTE | 2018-04-29 08:19 | NUR ---
[facility] HERE TO TAKE PT HOME RIG #[id number]. PT ALERT ORIENTED DRESSED AND READY TO GO
[2018-04-29 08:22] VITALS: BP 165/74
== END 2018-04-29 08:05 | disposition home or self-care (01) ==
LOC: ER 04:45
DX: N39.0 Urinary tract infection, site not specified (principal); G35 Multiple sclerosis; K21.9 Gastro-esophageal reflux disease without esophagitis; Z90.710 Acquired absence of both cervix and uterus; Z98.890 Other specified postprocedural states; Z90.49 Acquired absence of other specified parts of digestive tract; Z88.6 Allergy status to analgesic agent; Z88.5 Allergy status to narcotic agent
CPT/HCPCS: 36415; 80048-TC; 80076-TC; 81000-TC; 83605-TC; 85025-TC; 87040-TC; 87086-TC; 87186-TC; A4606; J2270; J2405; J7040; Z7610

== ENCOUNTER 2018-04-29 09:18 | Emergency (ER) | payer MEDICARE, OTHER ==
[~2018-04-29] VITALS: Ht 160 cm; Wt 67.1 kg
[2018-04-29] MEDS ORDERED: LISINOPRIL (20MG) 20 MG TABLET PO SCH (10:00)
--- NOTE | 2018-04-29 11:48 | NUR ---
CALLED [facility] FOR THIS PATIENT ETA 5070 TRIP #[id number]
[2018-04-29 12:46] VITALS: BP 171/81
--- NOTE | 2018-04-29 12:47 | NUR ---
PT LEFT WITH [facility] TO HOME STABLE WILL FOLLOW UP WITH KRYSTIAN
== END 2018-04-29 12:48 | disposition home or self-care (01) ==
LOC: ER 09:20
DX: R03.0 Elevated blood-pressure reading, without diagnosis of hypertension (principal); G35 Multiple sclerosis; K21.9 Gastro-esophageal reflux disease without esophagitis; Z87.440 Personal history of urinary (tract) infections; Z90.710 Acquired absence of both cervix and uterus; Z98.890 Other specified postprocedural states; Z88.6 Allergy status to analgesic agent; Z88.5 Allergy status to narcotic agent
CPT/HCPCS: 99283; A4606; Z7610

== ENCOUNTER 2018-08-26 06:32 | Emergency (ER) | payer MEDICARE, OTHER ==
[~2018-08-26] VITALS: Ht 160 cm; Wt 63.5 kg
--- NOTE | 2018-08-26 06:52 | NUR ---
PT BIB RA. COMP OF "FEELING MORE LETHERGIC THAN NORMAL, CAREGIVER STATING, STARTED GETTING WORSE AFTER TAKING NEW MEDICATION". -NEURO DEFICIT. +MS. -N/V. -DIZZINESS. -SOB. MD AT BEDSIDE FOR EVAL.
--- NOTE | 2018-08-26 06:59 | NUR ---
LABS DRAWN AND SENT FOR ANALYSIS.
[2018-08-26 07:00] LABS: BASOPHILS # (AUTO) 0.1 /CMM (0.0-0.2); BASOPHILS % (AUTO) 1.5 % (0.0-2.0); EOSINOPHILS % (AUTO) 3.2 % (0.0-6.0); HEMATOCRIT 43 % (33-45); HEMOGLOBIN 14.1 g/dL (11.5-14.8); LYMPHOCYTES # (AUTO) 2.1 /CMM (0.8-4.8); MEAN CORPUSCULAR HGB CONC 33 g/dl (31.0-36.0); MEAN CORPUSCULAR VOLUME 92 fL (82-100); MONOCYTES # (AUTO) 0.5 /CMM (0.1-1.30); MONOCYTES % (AUTO) 7.8 % (2.0-12.0); NEUTROPHILS # (AUTO) 3.9 /CMM (1.8-8.9); NEUTROPHILS % (AUTO) 56.5 % (43.0-81.0); PLATELET COUNT (AUTO) 248 /CMM (150-450); RED BLOOD CELL COUNT(AUTO) 4.68 MIL/uL (4.0-5.2); WHITE BLOOD COUNT (AUTO) 6.8 K/uL (4.3-11.0)
[2018-08-26] MEDS ORDERED: IV NS 0.9% 1,000 ML BAG IV ONE (07:00)
--- NOTE | 2018-08-26 07:06 | NUR ---
PT TAKEN TO RADIOLOGY
[2018-08-26 07:07] LABS: CALCIUM, SERUM 9.6 mg/dL (8.5-10.1); CARBON DIOXIDE 27 mmol/L (21-32); CHLORIDE 104 mmol/L (98-107); CREATININE 0.9 mg/dL (0.6-1.3); GLUCOSE 119 mg/dL (74-106); POTASSIUM 3.4 mmol/L (3.5-5.1); SODIUM SERUM 139 mmol/L (136-145); UREA NITROGEN, BLOOD 16 mg/dL (7-18)
[2018-08-26 07:13] LABS: ALANINE AMINOTRANSFERASE 14 U/L (12-78); ALBUMIN 3.4 g/dL (3.4-5.0); ALKALINE PHOSPHATASE 80 U/L (46-116); ASPARTATE AMINOTRANSFERASE 13 U/L (15-37); BILIRUBIN,DIRECT 0.1 mg/dL (0.0-0.2); BILIRUBIN,TOTAL 0.3 mg/dL (0.2-1.0); TOTAL PROTEIN, SERUM 7.3 g/dL (6.4-8.2)
--- NOTE | 2018-08-26 07:14 | NUR ---
received report from Jesusita GIPSON for jaja.
--- NOTE | 2018-08-26 07:14 | NUR ---
patient still in CT.
--- NOTE | 2018-08-26 07:20 | NUR ---
patient came back from ct.
[2018-08-26 07:50] LABS: APPEARANCE,URINE SL CLOUDY (CLEAR); BILIRUBIN,URINE NEGATIVE (NEGATIVE); BLOOD, URINE NEGATIVE Ery/uL (NEGATIVE); COLOR,URINE YELLOW (YELLOW); KETONES,URINE NEGATIVE (NEGATIVE); LEUKOCYTE ESTERASE ,URINE TRACE (NEGATIVE); NITRITE, URINE NEGATIVE (NEGATIVE); PH,URINE 7.5 (5.0-8.0); PROTEIN,URINE 1+ mg/dl (NEGATIVE); UGLUCOSE NEGATIVE (NEGATIVE); UROBILINOGEN,URINE 0.2 EU/dL (0.2)
[2018-08-26 07:55] LABS: RBC,URINE NONE SEEN /HPF (0-2)
[2018-08-26 07:56] LABS: BACTERIA,URINE Few /HPF (None Seen); SQUAMOUS EPITHELIAL CELL,UR Few /HPF (None Seen); URINE AMORPHOUS PHOSPHATES Moderate /HPF (None Seen)
[2018-08-26] MEDS ORDERED: hydrALAZINE HCL IV 20 MG VIAL IV ONE (08:00)
[2018-08-26] MEDS ORDERED: hydrALAZINE HCL IV 20 MG VIAL ONE (08:01)
[2018-08-26 08:55] LABS: SALICYLATE 3.8 mg/dL (2.8-20.0)
--- NOTE | 2018-08-26 13:48 | NUR ---
[facility] 5540 TRIP#[id number]
--- NOTE | 2018-08-26 13:52 | NUR ---
BLS TO [facility]IVATE RESIDENCE [address] ETA 1415 TRIP [id number]
[2018-08-26 14:32] VITALS: BP 145/87
--- NOTE | 2018-08-26 14:33 | NUR ---
Patient discharged to home in stable condition. Written and verbal after care instructions given. Patient verbalizes understanding of instruction. IV removed. Catheter intact and site benign. Pressure and 4x4 applied to site. No bleeding noted. patient left via gurney accompanied by 2 emt's in no apparent distress nor chest pain.
[2018-08-27] MEDS ORDERED: CARB200T PO (12:29)
[2018-08-27] MEDS ORDERED: GABA-532 PO (12:29)
== END 2018-08-26 14:33 | disposition home or self-care (01) ==
LOC: ER 06:38
DX: T42.1X1A Poisoning by iminostilbenes, accidental (unintentional), initial encounter (principal); G35 Multiple sclerosis; I10 Essential (primary) hypertension; G50.0 Trigeminal neuralgia; K21.9 Gastro-esophageal reflux disease without esophagitis; R41.82 Altered mental status, unspecified; Z90.710 Acquired absence of both cervix and uterus; Z98.890 Other specified postprocedural states; Z88.6 Allergy status to analgesic agent; Z88.5 Allergy status to narcotic agent; Z12.39 Encounter for other screening for malignant neoplasm of breast; Y92.89 Other specified places as the place of occurrence of the external cause
CPT/HCPCS: 36415; 70450; 71045; 80048; 80076; 80156 ×2; 80305; 80329; 81001; 84484; 85025; 85730; 93005; 96361; 96374; 99284; A4606; G0480; J0360; J7030; 81000-TC

== ENCOUNTER 2018-08-27 11:13 | Emergency (ER) | payer MEDICARE, OTHER ==
[~2018-08-27] VITALS: Ht 160 cm; Wt 65.3 kg
[2018-08-27] MEDS ORDERED: IV NS 0.9% 1,000 ML BAG IV ONE (11:30)
--- NOTE | 2018-08-27 11:32 | NUR ---
bib RA 78 from home per day porter pt is altered than usual , unable to get up , BS 140 - was here yesterday. PT HAS SOME EYE DROOP ON RIGHT SIDE DUE TO HX OF MS, PER PT. NO OTHER FACIAL DROOP, SLURRED SPEECH, ARM DRIFT, OR OTHER SIGN OF STROKE. PT IS AOX3, NON AMBULATORY, HYPERTENSIVE, RR EVEN AND UNLABORED ON RA. NO ACUTE DISTRESS NOTED. READY FOR EVAL.
[2018-08-27 11:38] LABS: BASOPHILS # (AUTO) 0.1 /CMM (0.0-0.2); BASOPHILS % (AUTO) 0.9 % (0.0-2.0); EOSINOPHILS % (AUTO) 2.2 % (0.0-6.0); HEMATOCRIT 42 % (33-45); HEMOGLOBIN 13.9 g/dL (11.5-14.8); LYMPHOCYTES # (AUTO) 1.8 /CMM (0.8-4.8); LYMPHOCYTES % (AUTO) 21.9 % (20.0-44.0); MEAN CORPUSCULAR HGB CONC 33 g/dl (31.0-36.0); MEAN CORPUSCULAR VOLUME 92 fL (82-100); MONOCYTES # (AUTO) 0.5 /CMM (0.1-1.30); MONOCYTES % (AUTO) 6.7 % (2.0-12.0); NEUTROPHILS # (AUTO) 5.6 /CMM (1.8-8.9); NEUTROPHILS % (AUTO) 68.3 % (43.0-81.0); PLATELET COUNT (AUTO) 241 /CMM (150-450); WHITE BLOOD COUNT (AUTO) 8.2 K/uL (4.3-11.0)
[2018-08-27 11:48] LABS: CALCIUM, SERUM 9.1 mg/dL (8.5-10.1); CARBON DIOXIDE 28 mmol/L (21-32); CHLORIDE 104 mmol/L (98-107); GLUCOSE 94 mg/dL (74-106); POTASSIUM 3.1 mmol/L (3.5-5.1); SODIUM SERUM 138 mmol/L (136-145); UREA NITROGEN, BLOOD 15 mg/dL (7-18)
[2018-08-27 11:52] LABS: SERUM AMMONIA 11 umol/L (11-32)
[2018-08-27 11:53] LABS: ALANINE AMINOTRANSFERASE 16 U/L (12-78); ALBUMIN 3.3 g/dL (3.4-5.0); ALKALINE PHOSPHATASE 85 U/L (46-116); ASPARTATE AMINOTRANSFERASE 13 U/L (15-37); BILIRUBIN,DIRECT 0.1 mg/dL (0.0-0.2); BILIRUBIN,TOTAL 0.4 mg/dL (0.2-1.0); SALICYLATE 4.1 mg/dL (2.8-20.0)
[2018-08-27 11:54] LABS: ACETAMINOPHEN 0 ug/ml (10-30); ALCOHOL, BLOOD < 3 mg/dL (0-0)
--- NOTE | 2018-08-27 11:55 | NUR ---
PT TAKEN TO CT VIA [facility]
[2018-08-27 12:13] LABS: APPEARANCE,URINE Slightly Cloudy (CLEAR); BILIRUBIN,URINE SMALL (NEGATIVE); BLOOD, URINE Small Ery/uL (NEGATIVE); COLOR,URINE Yellow (YELLOW); KETONES,URINE 80 (NEGATIVE); LEUKOCYTE ESTERASE ,URINE Trace (NEGATIVE); NITRITE, URINE Negative (NEGATIVE); PH,URINE 7.5 (5.0-8.0); PROTEIN,URINE 100 mg/dl (NEGATIVE); UGLUCOSE Negative (NEGATIVE); UROBILINOGEN,URINE 0.2 EU/dL (0.2)
[2018-08-27 12:27] LABS: BACTERIA,URINE Many /HPF (None Seen); SQUAMOUS EPITHELIAL CELL,UR Few /HPF (None Seen)
[2018-08-27] MEDS ORDERED: GABA-532 PO (12:29)
[2018-08-27] MEDS ORDERED: CARB200T PO (12:29)
[2018-08-27] MEDS ORDERED: POTASSIUM CHLORIDE 20 MEQ TAB.PRT.SR PO ONE ×2 (12:30)
--- NOTE | 2018-08-27 12:42 | NUR ---
CLEANED, DRIED, AND CHANGED PT. PROVIDED BLANKETS AND WATER FOR COMFORT.
--- NOTE | 2018-08-27 13:09 | NUR ---
CALLED [facility] [phone] TRIP#[phone]
--- NOTE | 2018-08-27 13:15 | NUR ---
PER DR MCBRIDE, PT OK TO DISCHARGE IF HYPERTENSION PERSISTS
[2018-08-27] MEDS ORDERED: hydrALAZINE HCL IV 20 MG VIAL IV ONE (13:30)
[2018-08-27] MEDS ORDERED: hydrALAZINE HCL IV 20 MG VIAL ONE (13:30)
--- NOTE | 2018-08-27 14:02 | NUR ---
Patient is resting comfortably in bed with eyes closed. Easily aroused. VSS
--- NOTE | 2018-08-27 14:38 | NUR ---
[facility] Addendum: 08/27/18 at 1459 by GRICEL AFTAB TUBBS
--- NOTE | 2018-08-27 14:45 | NUR ---
IV removed. Catheter intact and site benign. Pressure and 4x4 applied to site. No bleeding noted. Patient discharged to home in stable condition. Written and verbal after care instructions given. Patient verbalizes understanding of instruction.
[2018-08-27 15:00] VITALS: BP 170/90
== END 2018-08-27 14:45 | disposition home or self-care (01) ==
LOC: ER 11:15
DX: E87.6 Hypokalemia (principal); G35 Multiple sclerosis; E86.0 Dehydration; F13.10 Sedative, hypnotic or anxiolytic abuse, uncomplicated; Z90.89 Acquired absence of other organs; Z90.710 Acquired absence of both cervix and uterus; Z98.86 Personal history of breast implant removal; Z98.890 Other specified postprocedural states; Z88.6 Allergy status to analgesic agent; Z88.5 Allergy status to narcotic agent
CPT/HCPCS: 36415; 70450-TC; 71045-TC; 80048-TC; 80076-TC; 80156-TC; 80305; 81000-TC; 82140-TC; 84484-TC; 85025-TC; 85730-TC; 87086-TC; G0480; J0360; J7030

== ENCOUNTER 2018-09-06 18:02 | Emergency (ER) | payer MEDICARE, OTHER ==
[~2018-09-06] VITALS: Ht 160 cm; Wt 61.2 kg
[~2018-09-06 18:02] MED LIST changes: +CARB200T PO; +GABA-532 PO
--- NOTE | 2018-09-06 19:55 | NUR ---
Pt ERLINDA complaining of generalized weakness. Pt states that she is feeling better and wants to go home. Pt AXO4. Respirations even and unlabored. Pt put on the monitor and pending eval from ER .
--- NOTE | 2018-09-06 20:05 | NUR ---
Pt refused blood draw and lab work. ABDOUL MUKHERJEE aware.
--- NOTE | 2018-09-06 20:10 | NUR ---
Patient does not wish to proceed with medical care recommended by Dr. Cheng. Patient given information related to possible complications, up to and including , which could occur as a result of leaving the hospital at this time. Patient verbalizes understanding of risks involved due to leaving against medical advice. Patient has signed AMA form.
--- NOTE | 2018-09-06 20:30 | NUR ---
Megan called ETA 30 min. Trip #[id number].
[2018-09-06 21:40] VITALS: BP 151/78
== END 2018-09-06 21:48 | disposition left against medical advice (07) ==
LOC: ER 18:02
DX: R53.1 Weakness (principal); G35 Multiple sclerosis; E78.00 Pure hypercholesterolemia, unspecified; Z90.710 Acquired absence of both cervix and uterus; Z98.890 Other specified postprocedural states; Z88.6 Allergy status to analgesic agent; Z88.5 Allergy status to narcotic agent

== ENCOUNTER → 2019-02-17 | Emergency (ER) | payer MEDICARE, OTHER ==
[~2019-02-17] VITALS: Ht 157.5 cm; Wt 64.9 kg
[~2019-02-17] MED LIST changes: +CALC500T52 PO; +CIPR250T4 PO; +IOHEXOL-300 100 ML VIAL IV ONE; +IV NS 0.9% 500 ML BAG IV ONE; +NIAC500T2 PO
--- NOTE | 2019-02-17 12:17 | NUR ---
PT REC'D TO ER VIA EMS PT HAS HAD DIARRHEA FOR 1 WEEK GREENISH PT HAS MS TRACY LEGS IN BRACES . AMB WITH WALKER . ALERT X3 . HOB UP 45 . DENIES PAIN . SPEECH SLIGHT LOWAWAITING EVALUATION BY ER PROVIDER.
[2019-02-17 13:18] LABS: BASOPHILS # (AUTO) 0.1 /CMM (0.0-0.2); BASOPHILS % (AUTO) 1.2 % (0.0-2.0); EOSINOPHILS % (AUTO) 2.5 % (0.0-6.0); HEMATOCRIT 42 % (33-45); HEMOGLOBIN 13.7 g/dL (11.5-14.8); LYMPHOCYTES % (AUTO) 15.7 % (20.0-44.0); MEAN CORPUSCULAR HGB CONC 33 g/dl (31.0-36.0); MEAN CORPUSCULAR VOLUME 93 fL (82-100); MONOCYTES # (AUTO) 0.5 /CMM (0.1-1.30); MONOCYTES % (AUTO) 7.9 % (2.0-12.0); NEUTROPHILS # (AUTO) 4.6 /CMM (1.8-8.9); NEUTROPHILS % (AUTO) 72.7 % (43.0-81.0); PLATELET COUNT (AUTO) 214 /CMM (150-450); RED BLOOD CELL COUNT(AUTO) 4.44 MIL/uL (4.0-5.2); WHITE BLOOD COUNT (AUTO) 6.4 K/uL (4.3-11.0)
--- NOTE | 2019-02-17 13:20 | NUR ---
IV STARTED 20G RT AC LABS DRAWNS SENT TOP LAB FLUIDS GIVEN PER MD ORDER
[2019-02-17 13:26] LABS: CALCIUM, SERUM 8.9 mg/dL (8.5-10.1); CARBON DIOXIDE 32 mmol/L (21-32); CHLORIDE 105 mmol/L (98-107); GLUCOSE 113 mg/dL (74-106); POTASSIUM 3.7 mmol/L (3.5-5.1); SODIUM SERUM 142 mmol/L (136-145); UREA NITROGEN, BLOOD 12 mg/dL (7-18)
[2019-02-17 13:33] LABS: ALANINE AMINOTRANSFERASE 15 U/L (12-78); ALBUMIN 3.5 g/dL (3.4-5.0); ALKALINE PHOSPHATASE 74 U/L (46-116); ASPARTATE AMINOTRANSFERASE 11 U/L (15-37); BILIRUBIN,DIRECT 0.1 mg/dL (0.0-0.2); BILIRUBIN,TOTAL 0.3 mg/dL (0.2-1.0); LIPASE 63 U/L (73-393); TOTAL PROTEIN, SERUM 6.7 g/dL (6.4-8.2)
--- NOTE | 2019-02-17 15:31 | NUR ---
UA SENT TO LAB
--- NOTE | 2019-02-17 16:50 | NUR ---
KATHRIN CAREGIVER CONTACTED
--- NOTE | 2019-02-17 17:05 | NUR ---
CALLED FOR S TRANSPORT BACK TO [facility], 1814 ATE.
--- NOTE | 2019-02-17 17:38 | NUR ---
PT ATE FELL ASLEEP VSS
--- NOTE | 2019-02-17 18:43 | NUR ---
IV removed. Catheter intact and site benign. Pressure and 4x4 applied to site. No bleeding noted.Patient discharged to home in stable condition. Written and verbal after care instructions given. Patient verbalizes understanding of instruction.
[2019-02-17 18:44] VITALS: BP 159/57
[2019-02-17 19:14] LABS: APPEARANCE,URINE CLEAR (CLEAR); BILIRUBIN,URINE NEGATIVE (NEGATIVE); BLOOD, URINE NEGATIVE Ery/uL (NEGATIVE); COLOR,URINE YELLOW (YELLOW); KETONES,URINE NEGATIVE (NEGATIVE); LEUKOCYTE ESTERASE ,URINE NEGATIVE (NEGATIVE); NITRITE, URINE NEGATIVE (NEGATIVE); PH,URINE 8.5 (5.0-8.0); PROTEIN,URINE NEGATIVE (NEGATIVE); UGLUCOSE NEGATIVE (NEGATIVE); UROBILINOGEN,URINE 0.2 EU/dL (0.2)
== END | disposition home or self-care (01) ==
LOC: ER 11:47 → MED 12:42 → UNDOADMIN 12:42
DX: R19.7 Diarrhea, unspecified (principal); G35 Multiple sclerosis; E78.00 Pure hypercholesterolemia, unspecified; Z90.710 Acquired absence of both cervix and uterus; Z98.890 Other specified postprocedural states; Z88.6 Allergy status to analgesic agent; Z88.5 Allergy status to narcotic agent
CPT/HCPCS: 36415; 74177; 80048; 80076; 81001; 83605; 83690; 85025; 96360; 99284; Q9967; 81000-TC

== ENCOUNTER 2020-01-07 17:01 | Emergency (ER) | payer MEDICARE, OTHER ==
[~2020-01-07] VITALS: Ht 160 cm; Wt 62.1 kg
[~2020-01-07 17:01] MED LIST changes: -GABA-532 PO; -IOHEXOL-300 100 ML VIAL IV ONE; -IV NS 0.9% 500 ML BAG IV ONE
--- NOTE | 2020-01-07 17:30 | NUR ---
patient came in to the er c/o left ear hearing loss x 3 weeks. On room air, breathing evenly and unlabored. kept comfortable, will continue to monitor accordingly.
[2020-01-07] MEDS ORDERED: DOCUSATE SODIUM LIQ 100 MG/10 ML UDC ONE (17:50)
[2020-01-07] MEDS ORDERED: DOCUSATE SODIUM LIQ 100 MG/10 ML UDC NG ONE (18:00)
[2020-01-07 18:43] VITALS: BP 145/78
--- NOTE | 2020-01-07 18:43 | NUR ---
Patient discharged to home in stable condition. Written and verbal after care instructions given. Patient verbalizes understanding of instruction.
== END 2020-01-07 18:43 | disposition home or self-care (01) ==
LOC: ER 17:10
DX: H61.22 Impacted cerumen, left ear (principal); G35 Multiple sclerosis; E78.00 Pure hypercholesterolemia, unspecified; Z90.710 Acquired absence of both cervix and uterus; Z98.890 Other specified postprocedural states; Z88.6 Allergy status to analgesic agent; Z88.5 Allergy status to narcotic agent; Z79.899 Other long term (current) drug therapy

== ENCOUNTER 2020-09-24 06:12 | Emergency (ER) | payer MEDICARE, OTHER ==
[~2020-09-24] VITALS: Ht 160 cm; Wt 63.5 kg
--- NOTE | 2020-09-24 06:15 | NUR ---
PT AAOX4, BIBEMS FROM HOME C/O COUGH, SOB WITH WHEEZING, LOW O2 SAT 85% X1 DAY. 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 AWAITING ER MD FOR EVAL AND ORDERS. NO ACUTE DISTRESS NOTED. 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 PT SAT 94% ON ROOM AIR. VSS
--- NOTE | 2020-09-24 06:20 | NUR ---
LINE ESTABLISHED RF 18G, BLOOD WORK SENT TO LAB.
[2020-09-24] MEDS ORDERED: ONDANSETRON HCL/PF 4 MG/2 ML VIAL ONE (06:34)
[2020-09-24] MEDS ORDERED: MORPHINE SULFATE INJ 4 MG/ML DISP.SYRIN ONE (06:35)
[2020-09-24] MEDS: MORPHINE SULFATE INJ 2 MG/ML DISP.SYRIN IV ONE (06:35)
[2020-09-24] MEDS: ONDANSETRON HCL/PF 4 MG/2 ML VIAL IVP ONE (06:36)
[2020-09-24 06:50] LABS: BASOPHILS # (AUTO) 0.1 /CMM (0.0-0.2); BASOPHILS % (AUTO) 1.2 % (0.0-2.0); EOSINOPHILS % (AUTO) 6.3 % (0.0-6.0); HEMATOCRIT 42 % (33-45); HEMOGLOBIN 13.9 g/dL (11.5-14.8); LYMPHOCYTES # (AUTO) 2.6 /CMM (0.8-4.8); LYMPHOCYTES % (AUTO) 27.8 % (20.0-44.0); MEAN CORPUSCULAR HGB CONC 33 g/dl (31.0-36.0); MEAN CORPUSCULAR VOLUME 97 fL (82-100); MONOCYTES # (AUTO) 0.8 /CMM (0.1-1.30); MONOCYTES % (AUTO) 8.3 % (2.0-12.0); NEUTROPHILS # (AUTO) 5.2 /CMM (1.8-8.9); NEUTROPHILS % (AUTO) 56.4 % (43.0-81.0); PLATELET COUNT (AUTO) 295 /CMM (150-450); RED BLOOD CELL COUNT(AUTO) 4.36 MIL/uL (4.0-5.2); WHITE BLOOD COUNT (AUTO) 9.2 K/uL (4.3-11.0)
[2020-09-24 06:54] LABS: CALCIUM, SERUM 9.6 mg/dL (8.5-10.1); CREATININE 1.1 mg/dL (0.6-1.3); POTASSIUM 4.1 mmol/L (3.5-5.1)
[2020-09-24 07:00] LABS: ALBUMIN 3.7 g/dL (3.4-5.0); BILIRUBIN,DIRECT 0.1 mg/dL (0.0-0.2); BILIRUBIN,TOTAL 0.4 mg/dL (0.2-1.0); TOTAL PROTEIN, SERUM 7.5 g/dL (6.4-8.2)
--- NOTE | 2020-09-24 07:00 | NUR ---
BROUGHT TO CT
--- NOTE | 2020-09-24 07:05 | NUR ---
URINE COLLECTED, SENT TO LAB.
--- NOTE | 2020-09-24 07:10 | NUR ---
BROUGHT BACK FROM CT, CT NOT DONE, PATIENT FEELS NAUSEOUS, MADE MD AWARE
[2020-09-24 07:13] LABS: BILIRUBIN,URINE NEGATIVE (NEGATIVE); COLOR,URINE YELLOW (YELLOW); LEUKOCYTE ESTERASE ,URINE MODERATE (NEGATIVE); NITRITE, URINE POSITIVE (NEGATIVE); PH,URINE 7.5 (5.0-8.0); PROTEIN,URINE 30 mg/dl (NEGATIVE); UGLUCOSE NEGATIVE (NEGATIVE); UROBILINOGEN,URINE 0.2 EU/dL (0.2)
--- NOTE | 2020-09-24 07:24 | NUR ---
REPORT GIVEN TO TUYET GIPSON FOR IZABELA
[2020-09-24] MEDS ORDERED: diphenhydrAMINE HCL 50 MG/ML VIAL ONE (07:25)
[2020-09-24] MEDS: diphenhydrAMINE HCL 50 MG/ML VIAL IV ONE (07:31)
[2020-09-24 07:52] LABS: BACTERIA,URINE Many /HPF (None Seen); RBC,URINE 0-2 /HPF (0-2); SQUAMOUS EPITHELIAL CELL,UR Few /HPF (None Seen); WBC,URINE 21-50 /HPF (0-3)
[2020-09-24] MEDS ORDERED: CEFTRIAXONE 1GM BAG (ER ONLY) 50 ML IV ONE (08:11)
[2020-09-24] MEDS ORDERED: HYDR-3972 PO (08:16)
[2020-09-24] MEDS ORDERED: CEPH250C PO (08:16)
[2020-09-24] MEDS: CEFTRIAXONE 1GM BAG (ER ONLY) 1 GM/50 ML PIGGYBACK IV ONE (08:20)
--- NOTE | 2020-09-24 08:24 | NUR ---
TRANSPORT CALLED ETA AM [place] 1000
--- NOTE | 2020-09-24 08:47 | NUR ---
MILY WILL BE HOME TO [facility] [phone]
--- NOTE | 2020-09-24 10:19 | NUR ---
IV removed. Catheter intact and site benign. Pressure and 4x4 applied to site. No bleeding noted. Picked u by [facility] in stable condition. Written and verbal after care instructions given. Patient verbalizes understanding of instruction.
[2020-09-24 10:27] VITALS: BP 141/93
== END 2020-09-24 10:27 | disposition home or self-care (01) ==
LOC: ER 06:14
DX: S39.012A Strain of muscle, fascia and tendon of lower back, initial encounter (principal); N39.0 Urinary tract infection, site not specified; R03.0 Elevated blood-pressure reading, without diagnosis of hypertension; R00.0 Tachycardia, unspecified; G35 Multiple sclerosis; J44.9 Chronic obstructive pulmonary disease, unspecified; E78.00 Pure hypercholesterolemia, unspecified; Z90.710 Acquired absence of both cervix and uterus; Z98.890 Other specified postprocedural states; Z88.6 Allergy status to analgesic agent; Z88.5 Allergy status to narcotic agent; Z79.899 Other long term (current) drug therapy; W18.39XA Other fall on same level, initial encounter; Y93.89 Activity, other specified; Y92.89 Other specified places as the place of occurrence of the external cause; Y99.8 Other external cause status
CPT/HCPCS: 36415; 71045; 72131; 72170; 80048; 80076; 81001; 85025; 87086; 93005; 96365; 96375; 99285; J0696; J1200; J2270; J2405; 87186-TC